=== PATIENT | female | born 1985 | race Caucasian/White ===

== ENCOUNTER 2017-05-03 12:23 | Inpatient (IN) | payer OTHER, MEDICARE ==
[~2017-05-03] VITALS: Ht 177.8 cm; Wt 76.2 kg
--- NOTE | 2017-05-03 12:23 | NUR ---
Patient was BIBA at this time.
[2017-05-03 12:29] VITALS: BP 122/79
[2017-05-03 13:00] LABS: HEMATOCRIT 30.6 % (36-48); HEMOGLOBIN 9.9 g/dL (12.0-16.0); MEAN CORPUSCULAR HEMOGLOBIN 32 pg (27-31); MEAN CORPUSCULAR HGB CONC 32 g/dL (33-37); MEAN CORPUSCULAR VOLUME 97 fL (80-94); PLATELET COUNT (AUTO) 53 K/uL (140-450); RED BLOOD CELL COUNT(AUTO) 3.14 MIL/uL (4.20-5.40); RED CELL DISTRIBUTION WIDTH 13.2 % (11.6-13.7)
[2017-05-03 13:08] LABS: ANION GAP 5.9 (8-16); CALCIUM 8.5 mg/dL (8.5-10.1); CREATININE 1.7 mg/dL (0.6-1.3); POTASSIUM 3.9 mmol/L (3.5-5.1)
--- NOTE | 2017-05-03 13:14 | NUR ---
Patient taken to bed 03 via gurney per EMS.
[2017-05-03 13:15] LABS: ALBUMIN 2.8 g/dL (3.4-5.0); TOTAL BILIRUBIN 0.5 mg/dL (0.0-1.0); TOTAL PROTEIN, SERUM 6.4 g/dL (6.4-8.2)
--- NOTE | 2017-05-03 13:15 | NUR ---
PATIENT BIBA FROM REHAB FACILITY FOR EVALUATION OF ALTERED MENTAL STATUS S/P INGESTION OF COCAINE LAST NOC . PRODUCTION GENERALIST STATES PT TOOK COCAINE LAST NOC AND HAS BEEN ALTERED SINCE THAT TIME . DENIES N/V/D; SKIN IS PINK/WARM/DRY; AAOX2; LUNGS CLEAR BL; HR EVEN AND REGULAR; PT DENIES ANY FEVER, CP, SOB, OR COUGH AT THIS TIME; PATIENT STATES PAIN OF 0/10 AT THIS TIME; VSS; PATIENT POSITIONED FOR COMFORT; HOB ELEVATED; BEDRAILS UP X2; BED DOWN. ER MD MADE AWARE OF PT STATUS.
[2017-05-03 13:28] LABS: BAND % (MANUAL) 46 % (0-8); LYMPHOCYTES % (MANUAL) 3 % (20-46); MONOCYTES % (MANUAL) 8 % (5-12); NEUTROPHILS % (MANUAL) 43 (43-65)
[2017-05-03 13:29] LABS: PLATELET ESTIMATE DECREASED
--- NOTE | 2017-05-03 14:18 | NUR ---
XRAY at bedside.
[2017-05-03] MEDS ORDERED: NACL 0.9% 1,000 ML IV ONE ×3 (15:10)
[2017-05-03 15:11] LABS: SALICYLATE 3.4 mg/dL (2.8-20.0)
[2017-05-03 15:12] LABS: ACETAMINOPHEN < 0.5 ug/ml (10-30); ALCOHOL, BLOOD < 3 mg/dL (<3)
--- NOTE | 2017-05-03 15:35 | NUR ---
PT PROVIDED WITH BEDPAN BY [employer] [facility]E FOR URINE SAMPLE BUT UNABLE TO PROVIDE, PER DR NICE, PT STRAIGHT CATH WITH JAMIE COLON'S ASSISTANCE, RESULTS GIVEN TO DR NICE
--- NOTE | 2017-05-03 15:49 | NUR ---
0.9% 1L N/S STARTED W/O RIGHT AC 20G PER ORDER BY DR NICE
--- NOTE | 2017-05-03 15:53 | NUR ---
Dr. Banuelos evaluating patient at bedside.
[2017-05-03 15:56] LABS: APPEARANCE,URINE CLEAR (CLEAR); BLOOD, URINE 1+ (NEGATIVE); COLOR,URINE YELLOW (YELLOW); LEUKOCYTE ESTERASE ,URINE NEGATIVE (NEGATIVE); NITRITE, URINE NEGATIVE (NEGATIVE); PH,URINE 5.5 (5.0-9.0); PROTEIN,URINE NEGATIVE (NEGATIVE); UGLUCOSE 3+ (NEGATIVE); UROBILINOGEN,URINE 0.2 EU/dL (0.2 - 1)
[2017-05-03 15:59] LABS: BILIRUBIN,URINE NEGATIVE (NEGATIVE)
[2017-05-03 16:17] LABS: AMPHETAMINE, URINE POS. ng/ml (NEG <=1000); BACTERIA,URINE FEW /HPF (None Seen); BARBITURATE, URINE NEG. ng/ml (NEG <=200); BENZODIAZEPINE, URINE NEG. ng/mL (NEG <=200); CANNABINOID, URINE NEG. ng/mL (NEG <=50); COCAINE, URINE NEG. ng/mL (NEG <=300); OPIATE, URINE NEG. ng/mL (NEG <=2000); PHENCYCLIDINE SCREEN,URINE NEG. ng/mL (NEG <=25); RBC,URINE 0-3 /HPF (0-5); SQUAMOUS EPITHELIAL CELL,UR 0-3 /LPF (0-3 (FEW)); URINE AMORPHOUS URATE 1+ /HPF (None Seen); WBC,URINE 0-3 /HPF (0-5)
--- NOTE | 2017-05-03 16:26 | NUR ---
PT RESTING COMFORTABLY, NO ACUTE DISTRESS NOTED, NO AGRESSIVE BEHAVIOR NOTED, ON MONITOR, WILL CONTINUE TO MONITOR
--- NOTE | 2017-05-03 18:40 | NUR ---
Patient will be admitted to care of DR SAL. Admited to TELE. Will go to room 109B. Belongings list completed. Report to DAGOBERTO BARILLAS.
--- NOTE | 2017-05-03 19:00 | NUR ---
Patient going to CT via parul weller.
--- NOTE | 2017-05-03 19:20 | NUR ---
PT TAKEN TO CT FOR CT OF THE HEAD VIA JAMESREDWINA BY [employer], TAKEN STRAIT TO 109B FROM CT, REPORT GIVEN PHOTOENGRAVING ETCHER AT TELE
--- NOTE | 2017-05-03 19:20 | NUR ---
PT CAME FROM THE ED [facility]IA [employer] [facility]. PT IS AOX1, UNABLE TO RECALL FULL NAME, TIME, AND DATE, BUT IS ABLE TO FOLLOW COMMANDS, COOPERATE. PT IS ON ROOM AIR, NO S/S OF DISTRESS. ORIENTED PT TO THE UNIT. CALL LIGHT WITHIN REACH. SKIN INTACT. NOTED BLOOD IN THE LAI AREA, POSSIBLE START OF PERIOD, CLEANED AND PROVIDED PAD AND UNDERWEAR. WILL CONTINUE TO MONITOR. PT DENIES PAIN. IV ON THE LEFT HAND 20 G, PATENT AND INTACT. IV TO THE RIGHT AC 20 G, PATENT AND INTACT. DISCUSSED PLAN OF CARE WITH PATIENT, PATIENT VERBALIZED UNDERSTANDING. REINFORCEMENT NEEDED. SAFETY MEASURES CHECKED. WILL CONTINUE TO MONITOR.
[2017-05-03] MEDS ORDERED: NACL 0.9% 1,000 ML IV SCH (19:22)
[2017-05-03] MEDS ORDERED: ZOLPIDEM 5 MG TAB PO PRN (19:25)
[2017-05-03] MEDS ORDERED: LORazepam 1 MG TAB PO PRN (19:25)
[2017-05-03] MEDS ORDERED: KETOROLAC 30 MG/ML VIAL IVP PRN (19:25)
[2017-05-03] MEDS ORDERED: ONDANSETRON 4 MG/2 ML VIAL IM/IVP PRN (19:25)
[2017-05-03] MEDS ORDERED: MORPHINE SULFATE 2 MG/ML SYR IVP PRN (19:25)
[2017-05-03] MEDS ORDERED: HYDROcodone/APAP 7.5/325 MG 1 TAB PO PRN (19:25)
[2017-05-03] MEDS ORDERED: DOCUSATE SODIUM 100 MG GELCAP PO PRN (19:25)
[2017-05-03 20:00] VITALS: BP 100/57
--- NOTE | 2017-05-03 20:00 | NUR ---
VITAL SIGNS TAKEN AND IS STABLE. CALL LIGHT WITHIN REACH. WILL CONTINUE TO MONITOR FOR ANY CHANGES.
[2017-05-03 20:06] LABS: INR 1.2 (0.8-1.2); PARTIAL THROMBOPLASTIN TIME 29.4 secs (22-35.6); PROTHROMBIN TIME 12.6 secs (10.8-13.4)
[2017-05-03 20:16] LABS: LACTATE DEHYDROGENASE 161 U/L (81-234)
[2017-05-03 20:19] LABS: AMYLASE 17 U/L (25-115); CHOL/HDL RATIO 3.8 (1-4.5); CHOLESTEROL 84 mg/dL (<200); CREATINE KINASE, TOTAL 38 U/L (26-192); HDL CHOLESTEROL 22 mg/dL (40-60); LDL (CALC) 35 mg/dL (60-100); LIPASE 80 U/L (73-393); MAGNESIUM 2.1 mg/dL (1.8-2.4); PHOSPHORUS 3.5 mg/dL (2.5-4.9); TRIGLYCERIDES 138 mg/dL (30-150)
[2017-05-03 20:39] LABS: THYROID STIMULATING HORMONE < 0.01 uIU/mL (0.34-3.74)
[2017-05-03] MEDS ORDERED: DEXTROSE 50% 50 ML SYR IVP PRN (21:30)
[2017-05-03] MEDS: INSULIN LISPRO SLIDING SCALE 100 UNITS/ML VIAL SUBQ PRN (21:58)
--- NOTE | 2017-05-03 22:00 | NUR ---
PT SEEN ASLEEP ON BED. NO S/S OF DISTRESS. CALL LIGHT WITHIN REACH. WILL CONTINUE TO MONITOR FOR ANY CHANGES.
[2017-05-03 23:00] LABS: BLOOD GAS PCO2 34.4 mmHg (20-50); BLOOD GAS PH 7.461 (7.35-7.45); BLOOD GAS PO2 80.7 mmHg
[2017-05-03 23:01] LABS: BLOOD GAS BASE EXCESS 0.4 mmol/L (-2.0-2.0)
[2017-05-03 23:03] LABS: BLOOD GAS O2 SAT% 95.2 % (92.0-98.5)
[2017-05-03] MEDS ORDERED: PROPRANOLOL 20 MG TAB PO PRN (23:30)
[2017-05-04] VITALS (7 sets, daily range): BP systolic 95–117; BP diastolic 52–66
--- NOTE | 2017-05-04 | NUR ---
VITAL SIGNS TAKEN AND IN STABLE CONDITION. PT IS CURRENTLY ASLEEP. WILL CONTINUE TO MONITOR. CALL LIGHT WITHIN REACH.
--- NOTE | 2017-05-04 02:22 | NUR ---
PT SEEN ON BED ASLEEP, NO S/S OF DISTRESS. CALL LIGHT WITHIN REACH. WILL CONTINUE TO MONITOR.
--- NOTE | 2017-05-04 04:00 | NUR ---
VITAL SIGNS STABLE. PT IS SEEN ASLEEP, BUT WHEN AWOKEN IS CONFUSED. WILL CONTINUE TO MONITOR. SAFETY CHECKS IN PLACE. CALL LIGHT WITHIN REACH.
[2017-05-04] MEDS: SERTRALINE 50 MG TAB PO SCH ×2 (05:53→08:52)
[2017-05-04] MEDS ORDERED: LITHIUM CARBONATE 300 MG TAB PO SCH ×2 (06:30→21:00)
[2017-05-04] MEDS ORDERED: LEVOTHYROXINE 0.075 MG TAB PO SCH (06:30)
[2017-05-04] MEDS: INSULIN LISPRO SLIDING SCALE 100 UNITS/ML VIAL SUBQ PRN ×4 (06:31→20:56)
[2017-05-04] MEDS: BLOOD GLUCOSE MONITORING 1 DEV DEV FS SCH ×4 (06:32→21:01)
[2017-05-04 06:39] LABS: HEMATOCRIT 25.2 % (36-48); HEMOGLOBIN 8.4 g/dL (12.0-16.0); MEAN CORPUSCULAR HEMOGLOBIN 33 pg (27-31); MEAN CORPUSCULAR HGB CONC 34 g/dL (33-37); MEAN CORPUSCULAR VOLUME 97 fL (80-94); PLATELET COUNT (AUTO) 31 K/uL (140-450); RED CELL DISTRIBUTION WIDTH 13.2 % (11.6-13.7)
[2017-05-04 06:50] LABS: ANION GAP 9.6 (8-16); CALCIUM 7.5 mg/dL (8.5-10.1); CARBON DIOXIDE 25.9 mmol/L (21-32); CREATININE 1.2 mg/dL (0.6-1.3); POTASSIUM 3.5 mmol/L (3.5-5.1)
[2017-05-04 06:51] LABS: MAGNESIUM 2.1 mg/dL (1.8-2.4); PHOSPHORUS 2.7 mg/dL (2.5-4.9)
[2017-05-04 07:01] LABS: BAND % (MANUAL) 25 % (0-8); LYMPHOCYTES % (MANUAL) 9 % (20-46); MONOCYTES % (MANUAL) 13 % (5-12); NEUTROPHILS % (MANUAL) 51 (43-65)
[2017-05-04 07:02] LABS: METAMYELOCYTES % 2 % (0-0); PLATELET ESTIMATE DECREASED
--- NOTE | 2017-05-04 07:15 | NUR ---
ENDORSED TO MORNING RN FOR CONTINUITY OF CARE. IS IN STABLE CONDITION.
--- NOTE | 2017-05-04 07:20 | NUR ---
RECEIVED PT IN BED. AWAKE. ALERT ORIENTED X1 WITH SOME CONFUSION NOTED. NO SOB NOTED. DENIES ANY PAIN OR DISCOMFORT AT THIS TIME. NO SIGNS AND SYMPTOMS OF ACUTE PAIN OR DISCOMFORT NOTED AT THIS TIME. POSITIVE BOWEL SOUNDS NOTED ON FOUR QUADRANTS. PT ON BEDREST. SAFETY PRECAUTION IN PLACE. CALL LIGHT WITHIN REACH. DENIES ANY PROBLEM WITH BOWEL OR BLADDER ELIMINATION AT THIS TIME.
--- NOTE | 2017-05-04 07:52 | NUR ---
DR LANE CAME TO SEE PT. MADE AWARE OF PLATELET LAB RESULT 31.
[2017-05-04] MEDS ORDERED: ACARBOSE 50 MG TAB PO SCH (08:00)
[2017-05-04 08:22] LABS: T4 (THYROXINE) 10.2 ug/dL (4.5-12.0)
[2017-05-04] MEDS: DIVALPROEX 500 MG TABEC PO SCH ×2 (08:50→20:54)
--- NOTE | 2017-05-04 08:50 | NUR ---
EDSON FROM ULTRASOUND DEPT CAME TO DO THE ULTRASOUND OF THYROID, AND VENOUS ANTERIOR AND LOWER EXTREMITIES.
[2017-05-04] MEDS: FOLIC ACID 1 MG TAB PO SCH (08:51)
[2017-05-04] MEDS: CYANOCOBALAMIN 1,000 MCG TAB PO SCH (08:52)
[2017-05-04] MEDS: PIOGLITAZONE 15 MG TAB PO SCH (08:54)
--- NOTE | 2017-05-04 09:13 | NUR ---
PATIENT HAS BEEN SCREENED AND CATEGORIZED MODERATE NUTRITION RISK. PATIENT WILL BE SEEN WITHIN 3-5 DAYS OF ADMISSION. 05/03/17-05/08/[address] Addendum: 05/04/17 at [address] ERROR
[2017-05-04 09:14] LABS: LITHIUM,SERUM 4.06 meq/L (0.50-1.00)
--- NOTE | 2017-05-04 09:49 | NUR ---
PATIENT HAS BEEN SCREENED AND CATEGORIZED HIGH NUTRITION RISK. PATIENT WILL BE SEEN WITHIN 1-2 DAYS OF ADMISSION. 05/03/17-05/05/[address]
[2017-05-04 10:05] LABS: HEMOGLOBIN A1C 6.7 % (4.8-5.6)
--- NOTE | 2017-05-04 11:52 | NUR ---
05/04/17 RD INITIAL ASSESSMENT COMPLETED PLEASE REFER TO NUTRITION ASSESSMENT UNDER CARE ACTIVITY FOR ESTIMATED NUTRITIONAL NEEDS. 1. CONTINUE 60 G CONSISTENT CARBOHYDRATE DIET 2. RD TO FOLLOW-UP 2-3 DAYS; HIGH RISK PRIYA BYERS RD
--- NOTE | 2017-05-04 12:05 | NUR ---
PT IS VERY CONFUSED/ALTERED. ASKED HER WHAT HER NAME WAS AND SHE RESPONDED, ASKED IF IT WAS OK TO DO THE ECHOCARDIOGRAM MULTIPLE TIMES BEFORE SHE SAID NO (REFUSED). NOTIFIED DR. LANE AND WILL TRY AGAIN TOMORROW.
[2017-05-04] MEDS ORDERED: FUROSEMIDE 40 MG/4 ML VIAL IVP SCH (12:30)
--- NOTE | 2017-05-04 12:52 | NUR ---
RECEIVED ORDER TO INSERT JAUREGUI CATHETER. INSERTED JAUREGUI CATHETER USING STERILE TECHNIQUE. DRAINING WELL, CLEAR YELLOW URINE.
[2017-05-04] MEDS: FUROSEMIDE 40 MG/4 ML VIAL IVP SCH (16:52)
--- NOTE | 2017-05-04 17:40 | NUR ---
PER WASHING MACHINE LOADER AND PULLER WHILE SHE WAS FEEDING PT. SHE FELT PT HAS A TEMPERATURE. CHECKED PT'S TEMPERATURE AT 100.8. COOLING MEASURES PROVIDED. MEDICATED TYLENOL PRN. ND DENIES ANY PAIN OR DISCOMFORT.
[2017-05-04] MEDS: ACETAMINOPHEN 325 MG TAB PO PRN (17:45)
--- NOTE | 2017-05-04 18:18 | NUR ---
RECHECKED PT'S TEMPERATURE TEMP WENT DOWN TO 96.8. NO ACUTE SIGNS AND SYMPTOMS OF DISTRESS NOTED AT THIS TIME.
--- NOTE | 2017-05-04 19:43 | NUR ---
PT KEPT CLEAN DRY AND COMFORTABLE NEEDS ATTENDED. ENDORSED TO BANKING CONSULTANT ON STABLE CONDITION FOR CONTINUITY OF CARE. JACLYN ARENAS MADE AWARE TO CHECK LITHIUM LAB DRAW RESULT FIRST BEFORE 0630 DOSE.
--- NOTE | 2017-05-04 19:44 | NUR ---
RECEIVED REPORT FROM MORNING NURSE. RECEIVED PATIENT IN BED AWAKE, A/OX1 WITH PERIODS OF CONFUSION. NO S/S OF DISTRESS. NO COMPLAINTS OF PAIN OR DISCOMFORT. WITH A JAUREGUI CATHETHER IN PLACE WITH YELLOW URINE DRAINING. WITH SL ON LEFT HAND, PATENT AND INTACT. ON BEDREST. PLAN OF CARE DISCUSSED WITH PATIENT, NEEDS REINFORCEMENT. KEPT CLEAN AND DRY. ALL NEEDS ATTENDED. CALL LIGHT WITHIN REACH. SAFETY MEASURES IN PLACE.
--- NOTE | 2017-05-04 20:51 | NUR ---
DUE MEDS GIVEN, TOLERATED BY PATIENT. WILL CONTINUE TO MONITOR. SAFETY CHECKS IN PLACE.
[2017-05-04] MEDS: MONTELUKAST SODIUM 10 MG TAB PO SCH (20:54)
[2017-05-04] MEDS: SIMVASTATIN 20 MG TAB PO SCH (20:55)
[2017-05-05] VITALS (7 sets, daily range): BP systolic 64–106; BP diastolic 31–66
--- NOTE | 2017-05-05 | NUR ---
VITAL SIGNS STABLE. PT SEEN ASLEEP. KEPT CLEAN AND DRY. WILL CONTINUE TO MONITOR. SAFETY CHECKS IN PLACE.
--- NOTE | 2017-05-05 02:12 | NUR ---
PT SEEN ON BED ASLEEP. NO S/S OF DISTRESS. WILL CONTINUE TO MONITOR. SAFETY CHECKS IN PLACE.
--- NOTE | 2017-05-05 04:00 | NUR ---
VITAL SIGNS STABLE. PT SEEN ON BED ASLEEP. NO S/S OF DISTRESS. NO COMPLAINTS OF PAIN. KEPT CLEAN AND DRY. ALL NEEDS ATTENDED. CALL LIGHT WITHIN REACH. SAFETY CHECKS IN PLACE. WILL CONTINUE TO MONITOR FOR CHANGES.
[2017-05-05 05:42] LABS: HEMOGLOBIN 9.1 g/dL (12.0-16.0)
[2017-05-05 06:02] LABS: ANION GAP 5.6 (8-16); CALCIUM 7.6 mg/dL (8.5-10.1); CARBON DIOXIDE 30.6 mmol/L (21-32); CREATININE 1.2 mg/dL (0.6-1.3); POTASSIUM 3.2 mmol/L (3.5-5.1)
[2017-05-05 06:06] LABS: HEMATOCRIT 27.5 % (36-48); MEAN CORPUSCULAR HEMOGLOBIN 32 pg (27-31); MEAN CORPUSCULAR HGB CONC 33 g/dL (33-37); MEAN CORPUSCULAR VOLUME 97 fL (80-94); PLATELET COUNT (AUTO) 34 K/uL (140-450); RED BLOOD CELL COUNT(AUTO) 2.84 MIL/uL (4.20-5.40); RED CELL DISTRIBUTION WIDTH 13.2 % (11.6-13.7); WHITE BLOOD COUNT (AUTO) 5.3 K/uL (4.8-10.8)
[2017-05-05] MEDS: INSULIN LISPRO SLIDING SCALE 100 UNITS/ML VIAL SUBQ PRN ×3 (06:24→16:34)
[2017-05-05] MEDS: BLOOD GLUCOSE MONITORING 1 DEV DEV FS SCH ×4 (06:46→21:01)
--- NOTE | 2017-05-05 07:15 | NUR ---
ENDORSED TO AM NURSE FOR CONTINUITY OF CARE. PT IN STABLE CONDITION. NO S/S OF DISTRESS.
[2017-05-05 07:32] LABS: BAND % (MANUAL) 33 % (0-8); LYMPHOCYTES % (MANUAL) 16 % (20-46); METAMYELOCYTES % 1 % (0-0); MONOCYTES % (MANUAL) 20 % (5-12); NEUTROPHILS % (MANUAL) 30 (43-65)
[2017-05-05] MEDS: PIOGLITAZONE 15 MG TAB PO SCH (08:38)
[2017-05-05] MEDS: CYANOCOBALAMIN 1,000 MCG TAB PO SCH (08:38)
[2017-05-05] MEDS: SERTRALINE 50 MG TAB PO SCH (08:38)
[2017-05-05] MEDS: FUROSEMIDE 40 MG/4 ML VIAL IVP SCH ×2 (08:38→16:31)
[2017-05-05] MEDS: FOLIC ACID 1 MG TAB PO SCH (08:38)
[2017-05-05] MEDS: DIVALPROEX 500 MG TABEC PO SCH ×3 (08:39→16:32)
--- NOTE | 2017-05-05 08:40 | NUR ---
JAUREGUI DC'D PER ORDER, 10ML ASPIRATED FROM BALLOON, CATH TIP INTACT, PT HOSEA WELL, APPROX 200ML DARK URINE COLLECTED.
--- NOTE | 2017-05-05 09:08 | NUR ---
PHYSICAL THERAPY AT BEDSIDE, WILL GET PT UP INTO SHOWER WITH PT
[2017-05-05 09:15] LABS: FREE T4 (FREE THYROXINE) 2.53 ng/dL (0.76-1.46)
[2017-05-05 09:23] LABS: THYROID STIMULATING HORMONE < 0.01 uIU/mL (0.34-3.74)
[2017-05-05] MEDS ORDERED: POTASSIUM CHLORIDE 10 MEQ TABER PO SCH (09:30)
--- NOTE | 2017-05-05 10:55 | NUR ---
PT UP OUT OF BED WITH ASSIST WITH PHYSICAL THERAPY, PT WEAK, UNSTEADY ON HER FEET, UNABLE TO AMBULATE ON HER OWN, UNSAFE FOR SHOWER, BED BATH GIVEN, PERICARE DONE.
--- NOTE | 2017-05-05 11:11 | NUR ---
NOTIFIED DR. LANE THAT PT REFUSED ECHO AGAIN, HE EXPLAINED THE BENEFITS OF HAVING THE ECHO BUT THE PT DIDN'T CHANGE HER MIND.
--- NOTE | 2017-05-05 12:27 | NUR ---
CLINICAL REVIEW DONE.
[2017-05-05] MEDS ORDERED: DIVA500T1 PO (12:57)
[2017-05-05] MEDS ORDERED: ESK300 PO (12:59)
[2017-05-05] MEDS ORDERED: DIVA250E1 PO (12:59)
[2017-05-05 13:03] LABS: FOLIC ACID 12.2 ng/mL (>3.0)
--- NOTE | 2017-05-05 13:15 | NUR ---
SS NOTE: SENT PSYCH PLACEMENT INQUIRIES TO: - [facility] - [facility] - [facility] - [facility] Addendum: 05/05/17 at 1456 by Amira LOREDO INQUIRY ALSO SENT TO [facility] IN [place]
--- NOTE | 2017-05-05 13:20 | NUR ---
MOTHER MATTHEW FERNANDEZ (CONSERVATOR) AT BEDSIDE, DR LANE CALLED TO BEDSIDE TO DISCUSS PLAN OF CARE.
--- NOTE | 2017-05-05 13:49 | NUR ---
CELLULAR EQUIPMENT REPAIRER AT BEDSIDE FOR RE-ATTEMPT ECHOCARDIOGRAM WITH MOTHER AT BEDSIDE.
[2017-05-05] MEDS ORDERED: PIOG15TA13 PO (15:20)
[2017-05-05] MEDS ORDERED: FOLI1TAB90 PO (15:20)
[2017-05-05] MEDS ORDERED: DIVA500E13 PO (15:20)
[2017-05-05] MEDS ORDERED: SERT-146 PO (15:20)
[2017-05-05] MEDS ORDERED: CYAN100058 PO (15:20)
--- NOTE | 2017-05-05 16:49 | NUR ---
DUE MEDS GIVEN, PT HOSEA PILLS WELL, IV SITE CLEAR, ROCEPHINE INFUSING WELL, PT RESTING QUIETLY,R MAREK EVEN UNLABORED, SPEAKS SLOWLY TO THIS NURSE, DENIES PAIN OR DISCOMFORT, PT REMAINS ON CIRCULAR SAWYER HELPER, WILL CONTINUE TO MONITOR.
--- NOTE | 2017-05-05 19:28 | NUR ---
REPORT GIVEN TO RADIO INTERFERENCE SUPERVISOR, PT IN STABLE CONDITION.
--- NOTE | 2017-05-05 19:32 | NUR ---
RECEIVED REPORT FROM K NURSE AWAKE AND ALERT. A/OX1 WITH PERIODS OF CONFUSION. NO S/S OF DISTRESS. NO COMPLAINTS OF PAIN OR DISCOMFORT. IVF SITE TO RAC#20 , PATENT AND INTACT. PLAN OF CARE DISCUSSED WITH PATIENT, NEEDS REINFORCEMENT. NEEDS WILL BE ANTICIPATED AND MET. CALL LIGHT WITHIN REACH. SAFETY MEASURES IN PLACE. DX. OF TOXIC ENCEPHALOPATHY.
[2017-05-05] MEDS: MONTELUKAST SODIUM 10 MG TAB PO SCH (21:01)
[2017-05-05] MEDS: SIMVASTATIN 20 MG TAB PO SCH (21:01)
--- NOTE | 2017-05-05 21:49 | NUR ---
PT. PROVIDED WITH SNACK. CONFUSED. TALKING WITHOUT ANY SENSE OR CONNECTION AT ALL. BED ALARM ON. ROOM SITUATED INFRONT OF NURSING UNIT FOR EASY PHYSICAL CHECKING. NEEDS ANTICIPATED AND WILL BE MET.
[2017-05-06] VITALS: BP 110/58
--- NOTE | 2017-05-06 | NUR ---
STILL AWAKE AND WATCHED CLOSELY BY TAILMAN OUTSIDE ROOM. ENCOURAGED TO SLEEP RT MIDNIGHT. NO ANSWER GIVEN.
--- NOTE | 2017-05-06 03:00 | NUR ---
PT. ASLEEP NOW AT THIS TIME. NO RESTLESSNESS. NO SOB.
--- NOTE | 2017-05-06 04:54 | NUR ---
STILL ASLEEP. NO RESTLESSNESS.
[2017-05-06] MEDS: BLOOD GLUCOSE MONITORING 1 DEV DEV FS SCH ×4 (06:05→20:17)
[2017-05-06] MEDS: INSULIN LISPRO SLIDING SCALE 100 UNITS/ML VIAL SUBQ PRN ×4 (06:07→21:41)
--- NOTE | 2017-05-06 07:18 | NUR ---
ENDORSED TO THE NEXT RN FOR CONTINUITY OF CARE AWAKE AND ALERT. REFUSED TO HAVE BLOOD TESTS TAKEN FOR AM RT PER PT. SHE IS GOING HOME TODAY ANYWAY. PROS AND CONS TO NOT HAVING BLOOD SAMPLE TAKEN FOR TESTS EXPLAINED.
--- NOTE | 2017-05-06 07:20 | NUR ---
REPORT RECEIVED FROM COATING MACHINE OPERATOR, PT RESTING QUIETLY, RESP EVEN UNLABORED ON ROOM AIR IN NAD, SKIN COLOR WNL, PLAN OF CARE REVIEWED, DIRECTOR OF CREATIVE SERVICES AT BEDSIDE FOR BLOOD DRAW, CALL WALLACE WITHIN REACH, SIDE RAILS UP, BED LOCKED IN LOW POSITION, WILL CONTINUE TO MONITOR.
[2017-05-06 08:00] VITALS: BP 120/88
[2017-05-06 08:04] LABS: HEMATOCRIT 24.6 % (36-48); HEMOGLOBIN 8.1 g/dL (12.0-16.0); MEAN CORPUSCULAR HEMOGLOBIN 32 pg (27-31); MEAN CORPUSCULAR HGB CONC 33 g/dL (33-37); MEAN CORPUSCULAR VOLUME 96 fL (80-94); RED BLOOD CELL COUNT(AUTO) 2.56 MIL/uL (4.20-5.40); WHITE BLOOD COUNT (AUTO) 6.6 K/uL (4.8-10.8)
[2017-05-06 08:19] LABS: PLATELET COUNT (AUTO) 45 K/uL (140-450)
[2017-05-06 08:32] LABS: T4 (THYROXINE) 7.9 ug/dL (4.5-12.0)
[2017-05-06 08:36] LABS: ANION GAP 6.7 (8-16); CALCIUM 8.6 mg/dL (8.5-10.1); CARBON DIOXIDE 29.7 mmol/L (21-32); POTASSIUM 3.4 mmol/L (3.5-5.1)
[2017-05-06 08:41] LABS: BASOPHILS % (MANUAL) 1 % (0-2); EOSINOPHILS % (MANUAL) 1 % (0-4); LYMPHOCYTES % (MANUAL) 17 % (20-46); NEUTROPHILS % (MANUAL) 45 (43-65)
[2017-05-06 08:42] LABS: PLATELET ESTIMATE DECREASED
[2017-05-06 08:43] LABS: BAND % (MANUAL) 24 % (0-8); METAMYELOCYTES % 1 % (0-0)
[2017-05-06 08:46] LABS: MONOCYTES % (MANUAL) 12 % (5-12)
[2017-05-06] MEDS: FOLIC ACID 1 MG TAB PO SCH (09:00)
[2017-05-06] MEDS: FUROSEMIDE 40 MG/4 ML VIAL IVP SCH ×2 (09:24→17:00)
[2017-05-06] MEDS: DIVALPROEX 500 MG TABEC PO SCH ×3 (09:25→17:00)
[2017-05-06] MEDS: SERTRALINE 50 MG TAB PO SCH (09:25)
[2017-05-06] MEDS: PIOGLITAZONE 15 MG TAB PO SCH (09:25)
[2017-05-06] MEDS: CYANOCOBALAMIN 1,000 MCG TAB PO SCH (09:26)
--- NOTE | 2017-05-06 09:26 | NUR ---
DUE MEDS GIVEN, PT HOSEA PO MEDS WELL, PT AWAKE ALERT, MOVING LEGS TO SIDE OF BED, PT ABLE TO VERBALIZES HER NEEDS WITH SHORT SLURRED SPEECH, STATES "I WANT TO GO", "I WANT JUICE", PT ASSISTED TO SITTING POSITION IN BED, ASSISTED WITH BREAKFAST, PT WITH UNCOORDINATED ARMS/HANDS UNABLE TO EFFECTIVELY FEED HERSELF.
--- NOTE | 2017-05-06 10:11 | NUR ---
05/06/17 RD FOLLOW UP COMPLETED PLEASE REFER TO NUTRITION PROGRESS NOTE UNDER CARE ACTIVITY FOR ESTIMATED NUTRITION NEEDS. RD RECOMMENDATIONS: 1. CONTINUE ON CURRENT DIET TOLERATED. 2. RDN TO PROVIDE NO SUGAR ADDED HEALTH SHAKE WITH ALL MEALS TID TO HELP BETTER MEET EST NEEDS. 3. RD WILL F/U 5-7 DAYS; LOW RISK. SILVIANO GOMEZ MS, RDN
--- NOTE | 2017-05-06 13:00 | NUR ---
PT AWAKE ALERT, RESP EVEN UNLABORED, APPEARS IN NAD, DIAPER CHANGED, PERICARE DONE, PT SITTING UP NOW FOR LUNCH ASSISTED BY JAMISON MCKAY.
[2017-05-06 14:43] LABS: LITHIUM,SERUM 3.63 meq/L (0.50-1.00)
--- NOTE | 2017-05-06 14:45 | NUR ---
PHYSICAL THERAPY AT BEDSIDE, PT UP OUT OF BED AND AMBULATED WITH 2 PERSON ASSIST.
--- NOTE | 2017-05-06 15:16 | NUR ---
PHYSICAL THERAPY CO-SIGN The Physical Therapy Progress Notes documented by Slate Cutter have been reviewed. I CONCUR W/LAMP STACK DEVELOPER NOTE; CONT PER TX PLAN Reviewed/Co-Signed by: Britney De La Cruz PT Documentation Done by: GLENDY BARRAZA LAMP STACK DEVELOPER Addendum: 05/06/17 at 1517 by rBitney De La Cruz PT Amended: Links added.
--- NOTE | 2017-05-06 15:20 | NUR ---
MOTHER AND PT'S DAUGHTER AT BEDSIDE.
[2017-05-06 16:00] VITALS: BP 113/60
--- NOTE | 2017-05-06 16:30 | NUR ---
DR MCCULLOUGH (PSYCH) TO BEDSIDE FOR EVAL.
--- NOTE | 2017-05-06 18:00 | NUR ---
PT SITTING UP EATING DINNER WITH ASSIST, HOSEA WELL, DENIES ANY PAIN OR DISCOMFORT, DIAPER CHANGED, LAI CARE DONE, WILL CONTINUE TO MONTIOR.
--- NOTE | 2017-05-06 19:30 | NUR ---
REPORT GIVEN TO APPLICATION SPEC NURSE, PT STABLE.
--- NOTE | 2017-05-06 19:31 | NUR ---
RECEIVED REPORT FROM DAY RN FOR CONTINUITY OF CARE. PATIENT IS ALERT AND ORIENTED X2, UNABLE TO VERBALIZE UNDERSTANDING TO PLAN OF CARE. SHIFT ASSESSMENT DONE, VITAL SIGNS STABLE. NO S/S OF RESPIRATORY DISTRESS NOTED ON ROOM AIR. RT AC 20 GAUGE AND LT HAND 20 GAUGE PATENT AND FLUSHED. SAFETY PRECAUTIONS ENFORCED, BED ALARM ON AND BED IN LOWEST POSITION. WILL CONTINUE TO MONITOR FREQUENTLY.
[2017-05-06 20:00] VITALS: BP 102/58
[2017-05-06] MEDS: MONTELUKAST SODIUM 10 MG TAB PO SCH (20:17)
[2017-05-06] MEDS: SIMVASTATIN 20 MG TAB PO SCH (20:17)
--- NOTE | 2017-05-06 20:17 | NUR ---
DUE MEDICATIONS ADMINISTERED, TOLERATED WELL. PATIENT RESTING IN BED NO S/S OF DISTRESS OR DISCOMFORT NOTED. WILL CONTINUE TO MONITOR.
--- NOTE | 2017-05-06 22:00 | NUR ---
PATIENT RESTING AT THIS TIME, NO S/S OF DISTRESS OR DISCOMFORT NOTED. WILL CONTINUE TO MONITOR.
[2017-05-06 22:19] LABS: ANION GAP 7.5 (8-16); CARBON DIOXIDE 30.5 mmol/L (21-32)
[2017-05-07] VITALS: BP 115/59
--- NOTE | 2017-05-07 00:27 | NUR ---
VITAL SIGNS STABLE, PATIENT RESTLESS AT THIS TIME, ADMINISTERED ATIVAN PER MD ORDER. WILL CONTINUE TO MONITOR.
--- NOTE | 2017-05-07 02:00 | NUR ---
PATIENT RESTING IN BED, NO S/S OF DISTRESS OR DISCOMFORT NOTED. WILL CONTINUE TO MONITOR.
--- NOTE | 2017-05-07 04:10 | NUR ---
PATIENT ASLEEP AT THIS TIME, NO S/S OF DISTRESS OR DISCOMFORT. SAFETY MEASURES ENFORCED, WILL CONTINUE TO MONITOR.
[2017-05-07] MEDS: BLOOD GLUCOSE MONITORING 1 DEV DEV FS SCH ×4 (05:48→20:43)
[2017-05-07] MEDS: INSULIN LISPRO SLIDING SCALE 100 UNITS/ML VIAL SUBQ PRN ×4 (06:04→21:40)
--- NOTE | 2017-05-07 06:05 | NUR ---
BLOOD SUGAR TAKEN, ADMINISTERED INSULIN PER MD ORDER. WILL CONTINUE TO MONITOR.
[2017-05-07 06:44] LABS: ANION GAP 7.3 (8-16); CALCIUM 8.8 mg/dL (8.5-10.1); CARBON DIOXIDE 30.3 mmol/L (21-32); CREATININE 0.8 mg/dL (0.6-1.3); POTASSIUM 3.6 mmol/L (3.5-5.1)
[2017-05-07 06:55] LABS: HEMATOCRIT 24.4 % (36-48); MEAN CORPUSCULAR HEMOGLOBIN 32 pg (27-31); MEAN CORPUSCULAR HGB CONC 33 g/dL (33-37); MEAN CORPUSCULAR VOLUME 97 fL (80-94); PLATELET COUNT (AUTO) 88 K/uL (140-450); RED BLOOD CELL COUNT(AUTO) 2.51 MIL/uL (4.20-5.40); RED CELL DISTRIBUTION WIDTH 13.4 % (11.6-13.7); WHITE BLOOD COUNT (AUTO) 9.3 K/uL (4.8-10.8)
--- NOTE | 2017-05-07 07:06 | NUR ---
ENDORSED PATIENT TO DAY RN FOR CONTINUITY OF CARE, PATIENT IS IN STABLE CONDITION.
--- NOTE | 2017-05-07 07:06 | NUR ---
RECEIVED REPORT FROM NIGHT NURSE. PT IS SLEEPING BUT AWAKES TO NAME. AAOX1 TO SELF, ON ROOM AIR, IV TO RIGHT AC 20G SALINE LOCK, LEFT HAND 20G SALINE LOCK PATENT AND INTACT, SKIN INTACT. INITIAL ASSESSMENT COMPLETED, REVIEWED PLAN OF CARE WITH PT, PT DOES NOT VERBALIZE UNDERSTANDING. ALL SAFETY PRECAOUTIONS MET. CALL LIGHT WITHIN REACH. WILL CONTINUE TO MONITOR.
[2017-05-07 07:37] LABS: BAND % (MANUAL) 10 % (0-8); BASOPHILS % (MANUAL) 0 % (0-2); EOSINOPHILS % (MANUAL) 0 % (0-4); LYMPHOCYTES % (MANUAL) 9 % (20-46); MONOCYTES % (MANUAL) 7 % (5-12); NEUTROPHILS % (MANUAL) 74 (43-65)
[2017-05-07 07:38] LABS: PLATELET ESTIMATE DECREASED
[2017-05-07 07:50] VITALS: BP 110/64
[2017-05-07] MEDS: FOLIC ACID 1 MG TAB PO SCH (09:26)
[2017-05-07] MEDS: PIOGLITAZONE 15 MG TAB PO SCH (09:27)
[2017-05-07] MEDS: CYANOCOBALAMIN 1,000 MCG TAB PO SCH (09:27)
[2017-05-07] MEDS: DIVALPROEX 500 MG TABEC PO SCH ×3 (09:27→16:23)
[2017-05-07] MEDS: SERTRALINE 50 MG TAB PO SCH (09:27)
[2017-05-07] MEDS: FUROSEMIDE 40 MG/4 ML VIAL IVP SCH ×2 (09:28→16:23)
--- NOTE | 2017-05-07 09:29 | NUR ---
DUE MEDICATIONS GIVEN PT TOLERATED WELL. PT IS LETHARGIC BUT OPENS EYES TO SHAKE. ALL SAFETY NEEDS MET. WILL CONTINUE TO MONITOR
--- NOTE | 2017-05-07 12:18 | NUR ---
DUE MEDICATIONS GIVEN. PT TOLERATED WELL. ALL SAFETY PRECAUTIONS MET. WILL CONTINUE TO MONITOR.
[2017-05-07 12:27] LABS: LITHIUM,SERUM 3.08 meq/L (0.50-1.00)
--- NOTE | 2017-05-07 13:05 | NUR ---
CHECKED IN PT, PT IS AWAKE RESTLESS IN BED, REPOSITION PT IN BED, ALL SAFETY PRECAUTIONS MET. WILL CONTINUE TO MONITOR.
--- NOTE | 2017-05-07 15:45 | NUR ---
DUE MEDICATION GIVEN. PT CURRENTLY ASLEEP BUT AWAKENS TO SHAKE. ALL SAFETY PRECAUTIONS MET
[2017-05-07 16:00] VITALS: BP 110/63
[2017-05-07] MEDS: metFORMIN 850 MG TAB PO SCH (16:23)
--- NOTE | 2017-05-07 16:24 | NUR ---
PT SLEEPING BUT AWAKEN TO NAME, DUE MEDICATIONS GIVEN, NO S/S OF DISTRESS NOTED. ALL NEEDS MET. WILL CONTINUE TO MONITOR.
--- NOTE | 2017-05-07 18:10 | NUR ---
PT CURRENTLY EATING DINNER ASSISTED BY JEWELRY FINISHER. CALL LIGHT WITHIN REACH. WILL CONTINUE TO MONITOR.
--- NOTE | 2017-05-07 19:25 | NUR ---
ENDORSED PLAN OF CARE TO NIGHT NURSE, PT IN STABLE CONDITION.
--- NOTE | 2017-05-07 19:26 | NUR ---
RECEIVED REPORT FROM DAY RN FOR CONTINUITY OF CARE. PATIENT IS A&OX1 UNABLE TO VERBALIZE UNDERSTANDING. SHIFT ASSESSMENT DONE, VITAL SIGNS STABLE. NO S/S OF RESPIRATORY DISTRESS NOTED ON ROOM AIR. FLACC-0. IV TO RT AC AND LT WRIST PATENT AND FLUSHED. SKIN INTACT. SAFETY PRECAUTIONS ENFORCED. WILL CONTINUE TO MONITOR FREQUENTLY.
[2017-05-07 20:00] VITALS: BP 101/52
--- NOTE | 2017-05-07 20:33 | NUR ---
DUE MEDICATIONS ADMINISTERED, TOLERATED WELL. BLOOD SUGAR TAKEN, WILL ADMINISTER INSULIN PER MD ORDER. SPOKE TO PATIENTS MOTHER MATTHEW SAID SHE WILL BE IN TOMORROW. WILL CONTINUE TO MONITOR FREQUENTLY.
[2017-05-07] MEDS: SIMVASTATIN 20 MG TAB PO SCH (20:40)
[2017-05-07] MEDS: MONTELUKAST SODIUM 10 MG TAB PO SCH (20:40)
--- NOTE | 2017-05-07 22:00 | NUR ---
PATIENT ASLEEP AT THIS TIME, NO S/S OF DISTRESS OR DISCOMFORT NOTED. WILL CONTINUE TO MONITOR.
[2017-05-08] VITALS: BP 104/56
--- NOTE | 2017-05-08 00:10 | NUR ---
VITAL SIGNS STABLE. PROVIDED ORAL CARE FOR PATIENT, TOLERATED WELL. WILL CONTINUE TO MONITOR FREQUENTLY.
--- NOTE | 2017-05-08 02:05 | NUR ---
PATIENT AWAKE IN BED, NO S/S OF DISTRESS OR DISCOMFORT NOTED. WILL CONTINUE TO MONITOR.
--- NOTE | 2017-05-08 04:15 | NUR ---
PATIENT CLEANED AND REPOSITIONED, TOLERATED WELL. SAFETY MEASURES ENFORCED, WILL CONTINUE TO MONITOR.
[2017-05-08 06:11] LABS: ANION GAP 8.2 (8-16); CALCIUM 9.3 mg/dL (8.5-10.1); CARBON DIOXIDE 31.8 mmol/L (21-32); CREATININE 0.9 mg/dL (0.6-1.3)
[2017-05-08 06:13] LABS: HEMOGLOBIN 8.8 g/dL (12.0-16.0); MEAN CORPUSCULAR HEMOGLOBIN 32 pg (27-31); MEAN CORPUSCULAR HGB CONC 33 g/dL (33-37); MEAN CORPUSCULAR VOLUME 98 fL (80-94); PLATELET COUNT (AUTO) 134 K/uL (140-450); RED BLOOD CELL COUNT(AUTO) 2.75 MIL/uL (4.20-5.40); RED CELL DISTRIBUTION WIDTH 13.5 % (11.6-13.7); WHITE BLOOD COUNT (AUTO) 12.3 K/uL (4.8-10.8)
[2017-05-08] MEDS: BLOOD GLUCOSE MONITORING 1 DEV DEV FS SCH ×4 (06:16→20:43)
--- NOTE | 2017-05-08 06:17 | NUR ---
BLOOD SUGAR TAKEN, WILL ADMINISTER INSULIN PER MD ORDER. PATIENT RESTING IN BED, WILL CONTINUE TO MONITOR.
[2017-05-08] MEDS: INSULIN LISPRO SLIDING SCALE 100 UNITS/ML VIAL SUBQ PRN ×4 (06:24→20:44)
[2017-05-08 06:40] LABS: BAND % (MANUAL) 2 % (0-8); EOSINOPHILS % (MANUAL) 1 % (0-4); LYMPHOCYTES % (MANUAL) 9 % (20-46); MONOCYTES % (MANUAL) 9 % (5-12); NEUTROPHILS % (MANUAL) 79 (43-65)
--- NOTE | 2017-05-08 07:30 | NUR ---
ENDORSED PATIENT TO DAY RN FOR CONTINUITY OF CARE, PATIENT IS IN STABLE CONDITION.
--- NOTE | 2017-05-08 07:31 | NUR ---
PT AWAKE, ALERT AND CONFUSED, WITH NO SIGNS OF ACUTE DISTRESS. BOWEL SOUNDS ACTIVE IN ALL 4 QUADRANTS. BOWEL AND BLADDER INCONTINENCE. BEDREST. SKIN INTACT. IV PATENT AND ASYMPTOMATIC. RE-ORIENTED PT TO HOSPITAL AND TO UNIT, PT UNABLE TO COMPREHEND. BED IN LOW POSITION WITH BILATERAL HALF SIDE RAILS UP, CALL LIGHT WITHIN REACH.
[2017-05-08 08:00] VITALS: BP 105/68
[2017-05-08] MEDS: PIOGLITAZONE 15 MG TAB PO SCH (08:11)
[2017-05-08] MEDS: DIVALPROEX 500 MG TABEC PO SCH ×3 (08:11→16:59)
[2017-05-08] MEDS: metFORMIN 850 MG TAB PO SCH (08:11)
[2017-05-08] MEDS: FUROSEMIDE 40 MG/4 ML VIAL IVP SCH ×2 (08:11→16:59)
[2017-05-08] MEDS: FOLIC ACID 1 MG TAB PO SCH (08:12)
[2017-05-08] MEDS: SERTRALINE 50 MG TAB PO SCH (08:12)
[2017-05-08] MEDS: CYANOCOBALAMIN 1,000 MCG TAB PO SCH (08:12)
--- NOTE | 2017-05-08 12:07 | NUR ---
SS NOTE: SENT PSYCH PLACEMENT INQUIRIES TO: - [facility] - [facility] - [facility] - [facility] - [facility] - [facility]
--- NOTE | 2017-05-08 13:31 | NUR ---
SS NOTE: I SPOKE WITH PT'S MOTHER, MATTHEW PAVAN AND UPDATED HER ON PT'S D/C PLAN. Addendum: 05/09/17 at 1523 by Amira Jones SS MATTHEW ALSO STATED THAT IF PT NEEDS SNF PLACEMENT, PT HAS BEEN TO [facility] BEFORE AND WOULD LIKE TO SEE IF THEY ARE ABLE TO ACCEPT PT
[2017-05-08 16:00] VITALS: BP 116/84
--- NOTE | 2017-05-08 16:25 | NUR ---
SS NOTE: PER IVAN FROM [facility], THEY ARE UNABLE TO ACCEPT PT IF PT IS NOT AMBULATORY WITHOUT ASSISTANCE PER STEPHANIE FROM [facility], PT'S INFORMATION IS PENDING REVIEW PER GWEN FROM [facility], NO FEMALE BEDS AVAILABLE PER DAMION FROM [facility], NO FEMALE BEDS AVAILABLE
[2017-05-08] MEDS ORDERED: metFORMIN 850 MG TAB PO SCH (17:00)
[2017-05-08] MEDS: metFORMIN 500 MG TAB PO SCH (17:06)
--- NOTE | 2017-05-08 19:16 | NUR ---
PT AWAKE, ALERT WITH CONFUSION, NO SIGNS OF ACUTE DISTRESS. ENDORSED TO LAN RN, APPLIQUE SEWER NURSE, FOR CONTINUITY OF CARE.
--- NOTE | 2017-05-08 19:30 | NUR ---
RECEIVED FROM AM RN IN BED AWAKE AND ALERT. WITH CONFUSION AT TIMES. PT. NOTED TO MAKE TALKS WITH TOPIC NOT CONNECTED TO ISSUE AT HAND DISCUSSED. TOTAL CARE. DISABLED STATUS.HISTORY DRUG ABUSE, METH POSITIVE ,SCHIZOPHRENIA. DX. OF TOXIC ENCEPHALOPATHY. NEEDS WILL BE ANTICIPATED AND MET. PT. TURNS AND MOVES SELF. BED ALARM ON. RE-ORIENTED FREQUENTLY TO SURROUNDINGS AND CARE. IVF SITE TO RIGHT HAND AND LAC INTACT WITH GOOD BLOOD RETURNS.
[2017-05-08] MEDS: MONTELUKAST SODIUM 10 MG TAB PO SCH (20:39)
[2017-05-08] MEDS: SIMVASTATIN 20 MG TAB PO SCH (20:40)
--- NOTE | 2017-05-08 22:00 | NUR ---
PT. STILL AWAKE AND RESTLESS. BED ALARM ON. PT. WATCHED/MONITORED CLOSELY RT CONFUSION AND FALL RISK RT WANTING TO GET OUT OF BED.
--- NOTE | 2017-05-08 23:28 | NUR ---
SLEEPING WELL. NEEDS WILL BE ANTICIPATED AND MET. PT. WAKES UP EASILY WHEN TOUCHED.
[2017-05-09 00:16] VITALS: BP 106/62
[2017-05-09 01:39] LABS: LITHIUM,SERUM 2.57 meq/L (0.50-1.00)
--- NOTE | 2017-05-09 01:43 | NUR ---
RECEIVED LITHIUM LEVEL VALUE FROM YESTERDAY'S DRAW =2.57 . MADE CHARGE NURSE AWARE. NOT REPORTED TO MD RT LEVEL IS TRENDING DOWN FROM PREVIOUS RESULT.
--- NOTE | 2017-05-09 04:12 | NUR ---
CALL LIGHT AT BEDSIDE.AWAKE AT THIS TIME RT HYGIENE FOR AM GOING ON. NO SOB. FLACC 0- CONFUSED. NEEDS ANTICIPATED AND MET. TOTAL CARE RT CONFUSION/DISORIENTATION.
[2017-05-09] MEDS: BLOOD GLUCOSE MONITORING 1 DEV DEV FS SCH ×4 (05:24→21:28)
[2017-05-09] MEDS: INSULIN LISPRO SLIDING SCALE 100 UNITS/ML VIAL SUBQ PRN ×4 (05:26→21:21)
[2017-05-09 05:40] LABS: BASOPHILS # (AUTO) 0.1 K/uL (0.00-0.22); BASOPHILS % (AUTO) 1.2 % (0.0-2.0); EOSINOPHILS # (AUTO) 0.2 K/uL (0-0.4); EOSINOPHILS % (AUTO) 1.7 % (0.0-4.0); HEMATOCRIT 28.5 % (36-48); HEMOGLOBIN 9.1 g/dL (12.0-16.0); LYMPHOCYTES # (AUTO) 1.6 K/uL (2.5-16.5); LYMPHOCYTES % (AUTO) 15.4 % (20.5-51.1); MEAN CORPUSCULAR HEMOGLOBIN 32 pg (27-31); MEAN CORPUSCULAR HGB CONC 32 g/dL (33-37); MEAN CORPUSCULAR VOLUME 98 fL (80-94); NEUTROPHILS # (AUTO) 7.7 K/uL (1.8-7.7); NEUTROPHILS % (AUTO) 72.7 % (42.2-75.2); PLATELET COUNT (AUTO) 190 K/uL (140-450); RED BLOOD CELL COUNT(AUTO) 2.91 MIL/uL (4.20-5.40); RED CELL DISTRIBUTION WIDTH 13.9 % (11.6-13.7); WHITE BLOOD COUNT (AUTO) 10.6 K/uL (4.8-10.8)
[2017-05-09 05:54] LABS: ANION GAP 10.2 (8-16); CALCIUM 9.3 mg/dL (8.5-10.1); CARBON DIOXIDE 31.2 mmol/L (21-32); CREATININE 0.9 mg/dL (0.6-1.3); POTASSIUM 4.4 mmol/L (3.5-5.1)
--- NOTE | 2017-05-09 07:25 | NUR ---
AWAKE AT THIS TIME. ENDORSED TO THE NEXT RN FOR CONTINUITY OF CARE.
--- NOTE | 2017-05-09 07:26 | NUR ---
PT AWAKE, ALERT, AND CONFUSED, NO SIGNS OF ACUTE DISTRESS. BOWEL SOUNDS ACTIVE IN ALL 4 QUADRANTS, BOWEL AND BLADDER INCONTINENCE. SKIN INTACT. BEDBOUND. IV PATENT AND ASYMPTOMATIC. FLACC SCORE IS 0 AT THIS TIME. RE-ORIENTED PATIENT TO HOSPITAL AND TO UNIT, UNSURE IF PATIENT IS ABLE TO UNDERSTAND ALTHOUGH VERBALIZES UNDERSTANDING. BED IN LOW POSITION WITH BILATERAL HALF SIDE RAILS UP, CALL LIGHT WITHIN REACH.
[2017-05-09 08:00] VITALS: BP 146/86
[2017-05-09] MEDS: FUROSEMIDE 40 MG/4 ML VIAL IVP SCH (08:51)
[2017-05-09] MEDS: metFORMIN 500 MG TAB PO SCH (08:51)
[2017-05-09] MEDS: PIOGLITAZONE 15 MG TAB PO SCH (08:52)
[2017-05-09] MEDS: DIVALPROEX 500 MG TABEC PO SCH ×3 (08:53→16:42)
[2017-05-09] MEDS: FOLIC ACID 1 MG TAB PO SCH (08:54)
[2017-05-09] MEDS: CYANOCOBALAMIN 1,000 MCG TAB PO SCH (08:54)
[2017-05-09] MEDS: SERTRALINE 50 MG TAB PO SCH (09:01)
[2017-05-09] MEDS: NACL 0.45% 1,000 ML IV SCH (10:55)
--- NOTE | 2017-05-09 12:58 | NUR ---
BLOOD SUGAR WAS 442, REPORTED TO MD, PER MD GIVE HUMALOG 10 UNITS. ADMINISTERED, WILL CONTINUE TO MONITOR.
--- NOTE | 2017-05-09 14:43 | NUR ---
RECEIVED NEW ORDERS FOR STRAIGHT CATH FOR URINE COLLECTION FOR URINE OSMOLALITY. NOTED AND CARRIED OUT.
[2017-05-09 16:00] VITALS: BP 111/61
[2017-05-09] MEDS: MONTELUKAST SODIUM 10 MG TAB PO SCH (16:42)
[2017-05-09] MEDS: metFORMIN 850 MG TAB PO SCH (16:42)
--- NOTE | 2017-05-09 19:25 | NUR ---
PT ASLEEP, NO SIGNS OF ACUTE DISTRESS. ENDORSED TO USER EXPERIENCE LEAD NURSE FOR CONTINUITY OF CARE.
--- NOTE | 2017-05-09 19:30 | NUR ---
RECEIVED PT FROM KEIRY RN PT IS AOX1 DROWSY RESTING ON BED NOT SOB NOTED , PT CAN HER 4 EXTREMITIES, IV ON RT HAND INFUSING WELL INITIAL ASSESSMENT DONE
--- NOTE | 2017-05-09 21:00 | NUR ---
PT TAKEN WELL HER ORAL MEDICATION, NOT DISTRESS NOTED
[2017-05-09] MEDS: SIMVASTATIN 20 MG TAB PO SCH (21:25)
[2017-05-10] VITALS: BP 120/64
--- NOTE | 2017-05-10 | NUR ---
PT ON CLOSE MONITORING RESTING ON BED AOX1 MUMBLING IV ;ON RT HAND INFUSING WELL
[2017-05-10] MEDS: NACL 0.45% 1,000 ML IV SCH ×5 (01:04→22:16)
--- NOTE | 2017-05-10 02:00 | NUR ---
PT CONFUSED RESTING ON BED , MUMBLING , IV ON RT HAND INFUSING WELL
--- NOTE | 2017-05-10 04:11 | NUR ---
SPONGE BATH GIVEN LINEN CHANGED , PT FOLLOW COMMANDS,, CONFUSED AOX1
--- NOTE | 2017-05-10 05:30 | NUR ---
PT ON CLOSE MONITORING , CONFUSED AAOX1 FOLLOW COMMANDS NOT COMBATIVE MUMBLING IV ON RT H;AND INFUSING WELL
[2017-05-10] MEDS: BLOOD GLUCOSE MONITORING 1 DEV DEV FS SCH ×4 (06:00→22:10)
[2017-05-10] MEDS: INSULIN LISPRO SLIDING SCALE 100 UNITS/ML VIAL SUBQ PRN ×4 (06:01→22:18)
--- NOTE | 2017-05-10 06:20 | NUR ---
BLOOD SUGAR TEST [address] [employer] WITH [address] CASTILLO
[2017-05-10 07:07] LABS: ANION GAP 14.5 (8-16); CALCIUM 9.1 mg/dL (8.5-10.1); CARBON DIOXIDE 28.1 mmol/L (21-32); CREATININE 0.9 mg/dL (0.6-1.3); POTASSIUM 4.6 mmol/L (3.5-5.1)
--- NOTE | 2017-05-10 07:15 | NUR ---
RECEIVED REPORT FROM DAGOBERTO MOCTEZUMA. PT IS A/OX1, ON BEDREST, IV IS ON THE RT HAND, PATENT, INTACT, INFUSING WELL, SKIN IS INTACT, NO S/S OF RESPIRATORY DISTRESS OR DISCOMFORT NOTED, DISCUSSED PLAN OF CARE WITH PT, PT UNABLE TO COMPREHEND, SAFETY/FALL PRECAUTIONS ARE IN PLACE, CALL LIGHT IS WITHIN REACH, WILL CONTINUE TO MONITOR.
[2017-05-10 08:00] VITALS: BP 134/67
[2017-05-10] MEDS: metFORMIN 850 MG TAB PO SCH ×3 (08:40→17:00)
[2017-05-10] MEDS: FOLIC ACID 1 MG TAB PO SCH (08:40)
[2017-05-10] MEDS: CYANOCOBALAMIN 1,000 MCG TAB PO SCH (08:41)
[2017-05-10] MEDS: PIOGLITAZONE 15 MG TAB PO SCH (08:41)
[2017-05-10] MEDS: DIVALPROEX 500 MG TABEC PO SCH ×3 (08:42→17:00)
--- NOTE | 2017-05-10 08:42 | NUR ---
DUE MEDICATIONS WERE GIVEN, PT TOLERATED WELL.
[2017-05-10 08:59] LABS: LITHIUM,SERUM 1.67 meq/L (0.50-1.00)
[2017-05-10] MEDS ORDERED: LORazepam 1 MG TAB PO PRN (09:15)
[2017-05-10] MEDS: LORazepam 1 MG TAB PO SCH ×3 (10:09→17:00)
[2017-05-10] MEDS: ARIPiprazole 10 MG TAB PO SCH (10:09)
--- NOTE | 2017-05-10 10:40 | NUR ---
PT SLEEPING IN BED AT THIS TIME, CALL LIGHT WITHIN REACH, WILL CONTINUE TO MONITOR.
--- NOTE | 2017-05-10 13:40 | NUR ---
PT SLEEPING IN BED AT THIS TIME, BUT EASILY AWAKEN, NO S/S OF RESPIRATORY DISTRESS OR DISCOMFORT NOTED, CALL LIGHT WITHIN REACH.
--- NOTE | 2017-05-10 15:55 | NUR ---
PT SLEEPING IN BED, CALL LIGHT WITHIN REACH.
[2017-05-10 16:00] VITALS: BP 117/63
[2017-05-10] MEDS: MONTELUKAST SODIUM 10 MG TAB PO SCH (17:00)
--- NOTE | 2017-05-10 18:45 | NUR ---
PT IS SITTING UP IN BED, PT IS EATING WITH THE ASSISTANCE OF THE SCIENTIFIC SOFTWARE DEVELOPER, CALL LIGHT WITHIN REACH.
--- NOTE | 2017-05-10 19:35 | NUR ---
ENDORSED PT TO DAGOBERTO MONIQUE. FOR CONTINUITY OF CARE, PT STABLE AT THIS TIME.
[2017-05-10 20:00] VITALS: BP 132/79
--- NOTE | 2017-05-10 20:05 | NUR ---
SEEN PT AWAKE, ALERT AND ORIENTED TO NAME ONLY. PT'S SPEECH ARE GARBLED AND INCOMPREHENSIBLE. PT ABLE TO SAY "NO" WHEN ASKED IF SHE'S IN PAIN. INITIAL ASSESSMENT DONE. PT'S LIPS AR VERY DRY. OFFERED WATER TO DRINK AND ONLY TOOK FEW SIPS. PT HAS BILATERAL MITTENS ON PER AM, NURSE. PT MOVES A LOT AND HAS TENDENCY TO PULL OUT IV ACCESS. VITAL SIGNS CHECKED AND WNL. SAFETY REINFORCED. WILL CONTINUE TO MONITOR.
[2017-05-10] MEDS: SIMVASTATIN 20 MG TAB PO SCH (22:10)
--- NOTE | 2017-05-10 22:10 | NUR ---
BLOOD SUGAR CHECKED:266. WILL COVER W/ INSULIN ORDERED. HOB ELEVATED. ZOCOR PO GIVEN W/ APPLE SAUCE. PT TOLERATED MEDICATION WELL.
[2017-05-10] MEDS: INSULIN DETEMIR 100 UNITS/ML 10 ML VIAL SUBQ SCH (22:19)
--- NOTE | 2017-05-11 00:24 | NUR ---
PT AWAKE, STILL RESTLESS AND MOVES A LOT. PT MEDICATED W/ ATIVAN PO ORDERED. PT TOLERATED MEDICATION W/ APPLE SAUCE. PT KEPT COMFORTABLE IN BED. WILL CLOSELY MONITOR.
--- NOTE | 2017-05-11 01:30 | NUR ---
PT IS SLEEPING NOW. IVF INFUSING WELL. SAFETY REINFORCED.
[2017-05-11 04:00] VITALS: BP 100/70
--- NOTE | 2017-05-11 04:00 | NUR ---
SEEN PT ASLEEP BUT AROUSABLE. VITAL SIGNS CHECKED. IVF INFUSING WELL. SAFETY REINFORCED.
--- NOTE | 2017-05-11 05:40 | NUR ---
SEEN PT AWAKE. PT GIVEN WATER TO DRINK.
[2017-05-11] MEDS: NACL 0.45% 1,000 ML IV SCH ×4 (05:51→23:13)
[2017-05-11] MEDS: BLOOD GLUCOSE MONITORING 1 DEV DEV FS SCH ×4 (07:07→20:46)
[2017-05-11] MEDS: INSULIN LISPRO SLIDING SCALE 100 UNITS/ML VIAL SUBQ PRN ×2 (07:09→13:19)
[2017-05-11 07:14] LABS: ANION GAP 5.6 (8-16); CALCIUM 8.7 mg/dL (8.5-10.1); CARBON DIOXIDE 31.7 mmol/L (21-32); CREATININE 0.7 mg/dL (0.6-1.3); POTASSIUM 4.3 mmol/L (3.5-5.1)
--- NOTE | 2017-05-11 07:29 | NUR ---
SPOKE TO LAB REGARDING PT'S NP=106. GF=[id number] BUN=27 CREA=0.7 WILL NOTIFY MD. Addendum: 05/11/17 at 6735 by Alma Rosa Guzman RN NOTES FOR [id number]
--- NOTE | 2017-05-11 07:30 | NUR ---
RECEIVED PATIENT REPORT BEDSIDE. PATIENT ASLEEP BUT EASILY AROUSABLE. IV LINE TO THE RIGHT HAND INTACT WITH IVF INFUSING WELL. BED LOWERED WITH CALL LIGHT WITHIN REACH. WILL CONTINUE TO MONITOR
--- NOTE | 2017-05-11 07:30 | NUR ---
REPORT GIVEN TO DAYSHIFT NURSE INCLUDING CRITICAL LAB RESULT.
[2017-05-11] MEDS: FOLIC ACID 1 MG TAB PO SCH (09:09)
[2017-05-11] MEDS: metFORMIN 850 MG TAB PO SCH ×3 (09:09→17:02)
--- NOTE | 2017-05-11 09:09 | NUR ---
ADMINISTERED SCHEDULED MEDICATIONS. PATIENT TOLERATED WELL
[2017-05-11] MEDS: CYANOCOBALAMIN 1,000 MCG TAB PO SCH (09:11)
[2017-05-11] MEDS: DIVALPROEX 500 MG TABEC PO SCH ×4 (09:11→20:57)
[2017-05-11] MEDS: ARIPiprazole 10 MG TAB PO SCH ×2 (09:11→20:57)
[2017-05-11] MEDS: LORazepam 1 MG TAB PO SCH ×3 (09:11→17:02)
--- NOTE | 2017-05-11 09:15 | NUR ---
PATIENT REPORT GIVEN AT BEDSIDE. PATIENT ENDORSED IN STABLE CONDITION
--- NOTE | 2017-05-11 11:00 | NUR ---
PATIENT GIVEN BED BATH. PATIENT TURNED AND REPOSITIONED FOR COMFORT
--- NOTE | 2017-05-11 12:00 | NUR ---
PATIENT'S MOTHER PRESENT IN THE ROOM. PATIENT ASLEEP
--- NOTE | 2017-05-11 12:30 | NUR ---
SCHEDULED MEDICATIONS NOT ADMINISTERED. PATIENT TOO LETHARGIC
[2017-05-11 16:00] VITALS: BP 126/64
--- NOTE | 2017-05-11 16:30 | NUR ---
PATIENT CALMLY IN BED. PATIENT AWAKE AND ALERT. NO S/S OF DISTRESS NOTED
[2017-05-11] MEDS: MONTELUKAST SODIUM 10 MG TAB PO SCH (17:01)
--- NOTE | 2017-05-11 19:30 | NUR ---
RECEIVED REPORT FROM AM NURSE. PT SEEN ASLEEP. IS AOX1, CONFUSED. IS ON ROOM AIR. NO S/S OF DISTRESS. NO COMPLAINTS OF PAIN AT THIS TIME. WITH AN IV ON RIGHT HAND 22 G, PATENT AND INFUSING WELL. DISCUSSED PLAN OF CARE WITH PATIENT, NEEDS REINFORCEMENT. SAFETY CHECKS IN PLACE. WILL CONTINUE TO MONITOR.
[2017-05-11] MEDS: SIMVASTATIN 20 MG TAB PO SCH (20:57)
--- NOTE | 2017-05-11 20:57 | NUR ---
DID NOT GIVE ORAL MEDICATION DUE TO PT BEING DROWSY. BLOOD SUGAR 149, DR MONTEZ MADE AWARE. GAVE 10 UNITS OF LEVEMIR PER MD ORDER.
[2017-05-11] MEDS: INSULIN DETEMIR 100 UNITS/ML 10 ML VIAL SUBQ SCH (21:00)
--- NOTE | 2017-05-11 21:03 | NUR ---
GAVE APPLE SAUCE FOR PATIENT TO EAT.
[2017-05-11] MEDS: LORazepam 1 MG TAB PO PRN (23:53)
--- NOTE | 2017-05-11 23:54 | NUR ---
PT IS SEEN AGITATED. WILL GIVE PRN ATIVAN. VS TAKEN, STABLE. WILL CONTINUE TO MONITOR. SAFETY CHECKS IN PLACE.
[2017-05-12] VITALS: BP 108/60
--- NOTE | 2017-05-12 01:30 | NUR ---
MADE ROUNDS. PT IS ASLEEP. NO S/S OF ANY DISCOMFORT NOTED.
--- NOTE | 2017-05-12 04:30 | NUR ---
PT IS ASLEEP. NO S/S OF DISTRESS. WILL CONTINUE TO MONITOR.
[2017-05-12] MEDS: NACL 0.45% 1,000 ML IV SCH ×4 (05:42→22:50)
[2017-05-12 06:14] LABS: ANION GAP 10.7 (8-16); CALCIUM 8.3 mg/dL (8.5-10.1); CARBON DIOXIDE 28.3 mmol/L (21-32); CREATININE 0.6 mg/dL (0.6-1.3)
[2017-05-12] MEDS: BLOOD GLUCOSE MONITORING 1 DEV DEV FS SCH ×4 (06:39→20:45)
--- NOTE | 2017-05-12 06:39 | NUR ---
BLOOD SUGAR WAS CHECKED RESULT 113. NO INSULIN COVERAGE NEEDED.
--- NOTE | 2017-05-12 07:22 | NUR ---
ENDORSED TO AM SHIFT FOR CONTINUITY OF CARE. PT IN STABLE CONDITION.
--- NOTE | 2017-05-12 07:23 | NUR ---
RECEIVED REPORT FROM NIGHT NURSE AT PT BEDSIDE. PATIENT IS ALERT TO SELF AND FOLLOWS COMMANDS. PATIENT ON BEDREST. NO S/S OF ACUTE DISTRESS. BED IN LOWEST POSITION. CALL LIGHT WITHIN REACH.
[2017-05-12 08:00] VITALS: BP 138/71
--- NOTE | 2017-05-12 08:20 | NUR ---
ASSISTED PT IN CHANGING OF POSITIONS. PATIENT LINENS CHANGED, CLEAN AND DRY. PT ABLE TO ANSWER QUESTIONS APPROPRIATELY, STILL MUMBLING. NO S/S OF ACUTE DISTRESS.
[2017-05-12] MEDS: CYANOCOBALAMIN 1,000 MCG TAB PO SCH (08:26)
[2017-05-12] MEDS: DIVALPROEX 500 MG TABEC PO SCH ×2 (08:26→20:03)
[2017-05-12] MEDS: metFORMIN 850 MG TAB PO SCH ×3 (08:26→16:20)
[2017-05-12] MEDS: FOLIC ACID 1 MG TAB PO SCH (08:26)
--- NOTE | 2017-05-12 08:47 | NUR ---
Social Service Note: Per Anine from [facility] / , they are able to accept non-ambulatory patients, however, they need to assign one-on-one staff and they currently do not have staff available, nor will they have staff available over the weekend, case management rn Katelynn vera.
--- NOTE | 2017-05-12 11:30 | NUR ---
PATIENT SEEN BY MD AT BEDSIDE. NO S/S OF ACUTE DISTRESS.
[2017-05-12] MEDS: INSULIN LISPRO SLIDING SCALE 100 UNITS/ML VIAL SUBQ PRN ×2 (11:35→20:13)
--- NOTE | 2017-05-12 12:30 | NUR ---
PATIENT MOVEMENT OF LEGS RESTLESS WITH NO S/S OF DISTRESS. CONSTANT MOVEMENT OF LEGS NOTED, MD AT BEDSIDE AWARE.
--- NOTE | 2017-05-12 13:00 | NUR ---
PT FOUND WITH IV REMOVED, NEW IV STARTED ON RAC #22. NO S/S OF ACUTE DISTRESS. LINENS CHANGED, CLEAN AND DRY.
--- NOTE | 2017-05-12 14:28 | NUR ---
05/12/17 RD FOLLOW-UP ASSESSMENT COMPLETED PLEASE REFER TO NUTRITION ASSESSMENT UNDER CARE ACTIVITY FOR ESTIMATED NUTRITIONAL NEEDS. 1. 2 GM SODIUM DIET, 60 GM CONSISTENT CARBOHYDRATE DIET + DIET HEALTH SHAKE TID 2. RD TO FOLLOW-UP 3-5 DAYS; MODERATE RISK PRIYA BYERS, KARIN
[2017-05-12 16:00] VITALS: BP 112/68
--- NOTE | 2017-05-12 16:00 | NUR ---
PT RESTING IN BED. NO S/S OF ACUTE DISTRESS NOTED.
[2017-05-12] MEDS: MONTELUKAST SODIUM 10 MG TAB PO SCH (16:20)
--- NOTE | 2017-05-12 17:57 | NUR ---
PT CONTINUES TO MOVE AROUND IN BED, REPOSITIONED PATIENT. PATIENT SITTING UP FOR DINNER, TOLERATING WELL.
--- NOTE | 2017-05-12 19:10 | NUR ---
ENDORSED PLAN OF CARE TO NIGHT DAGOBERTO MOLINA AT PT BEDSIDE. NO S/S OF ACUTE DISTRESS.
--- NOTE | 2017-05-12 19:53 | NUR ---
PT TRIGGERED BED ALARM, WANTS TO GO TO BATHROOM BUT PT ALREADY VOIDED ON THE BED, INCONTINENT, PERINEAL CARE DONE, BED LINEN CHANGED, PT ENCOURAGE TO USE CALL LIGHT FOR ASSISTANCE, PT JUST NODDED, SIDE RAILS UP AND BED ALARM ON, CALL LIGHT WITHIN REACH.
[2017-05-12 20:00] VITALS: BP 144/74
[2017-05-12] MEDS: SIMVASTATIN 20 MG TAB PO SCH (20:03)
[2017-05-12] MEDS: ARIPiprazole 10 MG TAB PO SCH (20:03)
[2017-05-12] MEDS: INSULIN DETEMIR 100 UNITS/ML 10 ML VIAL SUBQ SCH (20:13)
[2017-05-12] MEDS: LORazepam 1 MG TAB PO PRN (21:33)
--- NOTE | 2017-05-12 21:35 | NUR ---
PT RESTLESS AND TALKING TO SELF, TRYING TO GET OOB SEVERAL TIMES, INSTRUCTED TO STAY IN BED AND USE CALL LIGHT FOR ASSISTANCE, WILL FOLLOW DIRECTION FOR SEVERAL MINUTES AND THEN TRIGGER BED ALARM AGAIN, ATIVAN PO GIVEN PRN, SAT OUTSIDE THE ROOM TO CLOSELY MONITOR PT.
[2017-05-12] MEDS: LORazepam 2 MG/ML VIAL IVP PRN (22:41)
--- NOTE | 2017-05-12 22:45 | NUR ---
PT STILL RESTLESS, PERIODS OF CONFUSION AND TRYING TO GET OOB, PAGED DR PICKETT WITH NEW ORDER, ATIVAN 1MG IVP ADMINISTERED PRN, CHOCOLATE PUDDING AND ORANGE JUICE GIVEN, CONSUMED 100%, SIDE RAILS UP AND BED ALARM ON, MONITORED CLOSELY.
[2017-05-13] VITALS: BP 101/59
--- NOTE | 2017-05-13 | NUR ---
PT SLEEPING, AROUSABLE BUT DROWSY, MOANS TO TOUCH, VITAL SIGNS STABLE, NO SIGNS OF DISTRESS, IVF INFUSING WELL, CONTINUE TO MONITOR CLOSELY.
--- NOTE | 2017-05-13 03:10 | NUR ---
PT AWAKE, DROWSY BUT RESTLESS, WITH CONFUSION, TALKING TO SELF AND SINGING AT TIMES, SIDE RAILS UP AND BED ALARM ON, RN IN THE ROOM FOR CLOSE MONITORING.
[2017-05-13 04:10] VITALS: BP 120/69
[2017-05-13] MEDS: LORazepam 2 MG/ML VIAL IVP PRN (04:11)
--- NOTE | 2017-05-13 04:15 | NUR ---
PT RESTLESS, KEEPS ON TOSSING AND TURNING ON BED, OCCASIONALLY DANGLES LEGS OVER THE SIDE RAILS, VERBALLY RESPONSIVE BUT CONFUSED, BLOOD SUGAR CHECKED WITH 150 RESULT, VITAL SIGS STABLE, MEDICATED PRN WITH ATIVAN IVP FOR RESTLESSNESS, MONITORED CLOSELY.
[2017-05-13] MEDS: NACL 0.45% 1,000 ML IV SCH ×3 (05:21→22:31)
--- NOTE | 2017-05-13 05:40 | NUR ---
PT SLEEPING, MOANS TO TOUCH, BLOOD SUGAR CHECKED WITH 144 RESULT, NO DISTRESS NOTED, IVF INFUSING WELL, SIDE RAILS UP AND BED ALARM ON, RN IN THE ROOM FOR CLOSE MONITORING.
[2017-05-13 06:43] LABS: ANION GAP 8.5 (8-16); CALCIUM 8.1 mg/dL (8.5-10.1); CARBON DIOXIDE 29.8 mmol/L (21-32); CREATININE 0.5 mg/dL (0.6-1.3); POTASSIUM 4.3 mmol/L (3.5-5.1)
[2017-05-13 06:59] LABS: FREE T4 (FREE THYROXINE) 1.38 ng/dL (0.76-1.46); VALPROIC ACID 68 ug/ml (50-100)
[2017-05-13 07:05] LABS: THYROID STIMULATING HORMONE < 0.01 uIU/mL (0.34-3.74)
--- NOTE | 2017-05-13 07:05 | NUR ---
PT AWAKE, VERBALLY RESPONSIVE, NO SIGNS OF DISTRESS, REPORT GIVEN TO YURIY NUÑEZ FOR CONTINUITY OF CARE.
--- NOTE | 2017-05-13 07:06 | NUR ---
ASSUMED CONTINUITY OF CARE. NO SIGNS AND SYMPTOMS OF ACUTE DISTRESS NOTED. INITIAL ASSESSMENT DONE. CONFUSED AND TRIED TO GET OUT OF BED AT TIMES. KEEP SAFE AND FREE FROM FALL. FALL PRECAUTION APPLIED. CALL LIGHT WITHIN REACH.
--- NOTE | 2017-05-13 07:10 | NUR ---
Patient's Plan of Care was discussed and reviewed with CRYSTALLIZER OPERATOR: YURIY JORDAN
[2017-05-13] MEDS: BLOOD GLUCOSE MONITORING 1 DEV DEV FS SCH ×4 (07:20→21:01)
[2017-05-13 08:00] VITALS: BP 134/73
[2017-05-13] MEDS: metFORMIN 850 MG TAB PO SCH ×3 (08:51→16:43)
[2017-05-13] MEDS: FOLIC ACID 1 MG TAB PO SCH (08:51)
[2017-05-13] MEDS: DIVALPROEX 500 MG TABEC PO SCH ×2 (08:52→20:54)
[2017-05-13] MEDS: CYANOCOBALAMIN 1,000 MCG TAB PO SCH (08:52)
[2017-05-13] MEDS: VITAMIN D 400 IU TAB PO SCH ×2 (09:20→20:53)
--- NOTE | 2017-05-13 09:20 | NUR ---
EDGAR HEAD CAME AND REPORTED THAT PT. CONFUSED AND TRIED TO GET OUT OF BED SO MANY TIMES. EDGAR HEAD WAS TOLD NOT TO GIVE ATIVAN BUT TO INCREASE PT. MONITORING OR WILL TRY SOME MEDICINE TREATMENT. INFORMED CHARGE NURSE.
--- NOTE | 2017-05-13 09:30 | NUR ---
CLOSE MONITORED PT. 1:1 DUE TO PT. CONFUSION AND TRIED TO GET OUT OF BED MAY TIMES. KEEP FREE FROM INJURY.
[2017-05-13] MEDS: PROPRANOLOL 20 MG TAB PO SCH ×3 (10:46→16:44)
--- NOTE | 2017-05-13 11:30 | NUR ---
CONFUSED, STILL TRYING TO GET OUT OF BED. NO ACUTE DISTRESS NOTED. CONTINUE TO MONITOR 1:1. KEEP FREE FROM INJURY.
[2017-05-13] MEDS: INSULIN LISPRO SLIDING SCALE 100 UNITS/ML VIAL SUBQ PRN ×3 (11:55→21:00)
--- NOTE | 2017-05-13 12:40 | NUR ---
SLEEPING WELL. NO DISCOMFORT NOTED. CONTINUE TO MONITOR.
[2017-05-13] MEDS ORDERED: PROPRANOLOL 20 MG TAB PO SCH (13:00)
--- NOTE | 2017-05-13 13:50 | NUR ---
INFORMED DR. BOLES THAT 1300 DOSE OF INDERAL 10 MG WAS HELD BECAUSE PT. SLEEPING.
[2017-05-13 13:56] LABS: LITHIUM,SERUM 0.45 meq/L (0.50-1.00)
--- NOTE | 2017-05-13 15:37 | NUR ---
PT. SO CONFUSED, NON-COMPLIANT TO SAFETY. TRIED TO GET OUT OF BED. CLOSELY MONITORED 1:1.
[2017-05-13 16:00] VITALS: BP 117/78
[2017-05-13] MEDS: MONTELUKAST SODIUM 10 MG TAB PO SCH (16:54)
--- NOTE | 2017-05-13 19:04 | NUR ---
REPORT GIVEN TO JESSE BERNAL. IVF INFUSING WELL. IN STABLE CONDITION. CLOSELY MONITORED BY KERMIT GOYAL 1:1.
--- NOTE | 2017-05-13 19:05 | NUR ---
RECEIVED PT AWAKE, RESTLESS AND CONFUSED, VERBALLY RESPONSIVE BUT MAKES NO SENSE, IVF INFUSING WELL, SISTER AT BEDSIDE, SAFETY MEASURES IN PLACE WITH SIDE RAILS UP AND BED ALARM ON, ON 1:1 SITTER IN THE ROOM, CALL LIGHT WITHIN REACH.
--- NOTE | 2017-05-13 19:10 | NUR ---
RECEIVED PT AWAKE TALKING TO FAMILY MEMBERS AT BEDSIDE, 02/06 ABDOMINAL PAIN LEVEL AT THIS TIME, OFFERED PAIN PILL BUT SAID "IM HIRAM RIGHT NOW", INSTRUCTED TO CALL IF PAIN GOT WORST, VITAL SIGNS TAKEN, BP LOW BUT STABLE 90/54, DENIES CHEST PAIN, NO SOB NOTED, IVF INFUSING WELL, STILL NOT BM AT THIS TIME, WILL GIVE DUE STOOL SOFTENER TONIGHT, PLAN OF CARE DISCUSS, CALL LIGHT WITHIN REACH. Addendum: 05/13/17 at 9744 by Enrike Rojas RN CHARTED ON WRONG PT
[2017-05-13] MEDS: ARIPiprazole 10 MG TAB PO SCH (20:53)
[2017-05-13] MEDS: SIMVASTATIN 20 MG TAB PO SCH (20:53)
[2017-05-13] MEDS: ZOLPIDEM 5 MG TAB PO PRN (20:53)
[2017-05-13] MEDS: INSULIN DETEMIR 100 UNITS/ML 10 ML VIAL SUBQ SCH (21:01)
--- NOTE | 2017-05-13 21:05 | NUR ---
BLOOD SUGAR CHECKED WITH 248 RESULT, COVERAGE GIVEN, DUE MEDICATIONS ADMINISTERED, SANDWICH PROVIDED AND CONSUMED 80%, ALL NEEDS ATTENDED.
[2017-05-14] VITALS: BP 113/79
--- NOTE | 2017-05-14 | NUR ---
PT AWAKE, RESTLESS AND CONFUSED, VITAL SIGNS STABLE, DENIES ANY PAIN, INCONTINENT OF URINE, PERINEAL CARE DONE, IVF INFUSING WELL, SITTER IN THE ROOM, CONTINUE TO MONITOR CLOSELY.
--- NOTE | 2017-05-14 00:47 | NUR ---
PT VERY RESTLESS TRYING TO GET OOB TO GO TO BR, ASSISTED TO THE BR WITH 2 PERSON ASSIST, PT UNSTEADY, BM WITH LARGE SOFT BROWN STOOL, ASSISTED BACK TO BED, SIDE RAILS UP AND BED ALARM ON, MONITORED CLOSELY.
--- NOTE | 2017-05-14 05:40 | NUR ---
BLOOD SUGAR CHECKED WITH 67 RESULT, PT AWAKE, RESTLESS, VERBALLY RESPONSIVE BUT CONFUSED, ORANGE JUICE X2 WITH FOUR SUGAR PACKETS GIVEN, CONSUMED 100%, WILL RECHECK LATER.
--- NOTE | 2017-05-14 06:16 | NUR ---
INCONTINENT CARE DONE, BED LINEN CHANGED, BLOOD SUGAR RECHECKED WITH 93 RESULT, MONITORED CLOSELY.
[2017-05-14] MEDS: BLOOD GLUCOSE MONITORING 1 DEV DEV FS SCH ×4 (06:37→20:33)
--- NOTE | 2017-05-14 07:05 | NUR ---
PT AWAKE, NO SIGNS OF DISTRESS, REPORT GIVEN TO YURIY ARENAS FOR CONTINUITY OF CARE.
--- NOTE | 2017-05-14 07:10 | NUR ---
Patient's Plan of Care was discussed and reviewed with RETAIL SOLAR ADVISOR: YURIY RUSS.
[2017-05-14] MEDS: metFORMIN 850 MG TAB PO SCH ×3 (07:51→17:23)
[2017-05-14 08:00] VITALS: BP 134/84
[2017-05-14] MEDS: NACL 0.45% 1,000 ML IV SCH (08:01)
[2017-05-14 08:08] LABS: T4 (THYROXINE) 6.3 ug/dL (4.5-12.0)
[2017-05-14] MEDS: DIVALPROEX 500 MG TABEC PO SCH ×2 (08:43→20:22)
[2017-05-14] MEDS: FOLIC ACID 1 MG TAB PO SCH (08:43)
[2017-05-14] MEDS: PROPRANOLOL 20 MG TAB PO SCH ×3 (08:44→17:23)
[2017-05-14] MEDS: CYANOCOBALAMIN 1,000 MCG TAB PO SCH (08:44)
[2017-05-14] MEDS: VITAMIN D 400 IU TAB PO SCH ×2 (08:44→20:22)
--- NOTE | 2017-05-14 09:15 | NUR ---
AMBULATES ON HALLWAY WITH STEADY GAIT AND BALANCE, FOLLOWED BY A SITTER OBED GUTIERREZ. TOLERATED WELL. PT. MADE 2 ROUNDS OF AMBULATION AROUND [facility] STATION. EDGAR HEAD AND CHARGE NURSE ISRRAEL BERNAL MADE AWARE OF PT. AMBULATION.
[2017-05-14 09:25] LABS: ANION GAP 9.3 (8-16); CALCIUM 7.9 mg/dL (8.5-10.1); CARBON DIOXIDE 29.5 mmol/L (21-32); CREATININE 0.5 mg/dL (0.6-1.3); POTASSIUM 3.8 mmol/L (3.5-5.1)
--- NOTE | 2017-05-14 11:24 | NUR ---
Social Service Note: Per Beto from [facility] / , no beds available at this time.
[2017-05-14] MEDS: INSULIN LISPRO SLIDING SCALE 100 UNITS/ML VIAL SUBQ PRN ×3 (11:50→20:33)
[2017-05-14 12:00] VITALS: BP 118/52
--- NOTE | 2017-05-14 12:00 | NUR ---
VITALS SIGN STABLE. NO C/O PAIN. WILL MONITOR.
[2017-05-14] MEDS: NICOTINE TRANSD SYS 21 MG/24 HR PATCH TD SCH (16:19)
[2017-05-14] MEDS: MONTELUKAST SODIUM 10 MG TAB PO SCH (17:23)
--- NOTE | 2017-05-14 19:17 | NUR ---
REPORT GIVEN TO JESSE BERNAL. IN STABLE CONDITION.
--- NOTE | 2017-05-14 19:20 | NUR ---
RECEIVED PT SITTING ON BED, ALERT BUT RESTLESS, UNABLE TO STAY STILL, TALKS A LOT ON MULTIPLE TOPICS THAT DOESN'T MAKE SENSE, DENIES ANY PAIN, SLIGHTLY UNSTEADY WHEN AMBULATING, ON FALL RISK, SITTER WITH PT AT ALL TIMES.
[2017-05-14] MEDS: ARIPiprazole 10 MG TAB PO SCH (20:22)
[2017-05-14] MEDS: SIMVASTATIN 20 MG TAB PO SCH (20:22)
[2017-05-14] MEDS: INSULIN DETEMIR 100 UNITS/ML 10 ML VIAL SUBQ SCH (20:33)
--- NOTE | 2017-05-14 22:44 | NUR ---
PT WOKE UP, AMBULATED INSIDE THE ROOM, REQUESTING SOMETHING TO EAT, SANDWICH AND DIET COLA PROVIDED, CONSUMED 25%, MONITORED CLOSELY.
[2017-05-15] VITALS: BP 110/56
--- NOTE | 2017-05-15 00:10 | NUR ---
PT STILL AWAKE, RESTLESS, TALKING TO SELF AND SOMETIMES HEARING VOICES, REORIENTED TO TIME AND PLACE, ENCOURAGE TO GO TO SLEEP, VITAL SIGNS STABLE, CONTINUE TO MONITOR CLOSELY.
--- NOTE | 2017-05-15 02:00 | NUR ---
PT STILL AWAKE, CALMER, STAYS IN BED TALKING TO SELF, SITTER AT BEDSIDE, MONITORED CLOSELY.
--- NOTE | 2017-05-15 04:10 | NUR ---
PT SLEEPING ON AND OFF, SIDE RAILS UP AND BED ALARM ON, MONITORED CLOSELY.
--- NOTE | 2017-05-15 05:30 | NUR ---
AM LABS DRAWN, BLOOD SUGAR CHECKED WITH 65 RESULT, PT AWAKE, ASYMPTOMATIC, APPLE JUICE X2 AND PUDDING X2 GIVEN, CONSUMED 100%, WILL RECHECKED SUGAR LATER.
--- NOTE | 2017-05-15 06:00 | NUR ---
BLOOD SUGAR RECHECKED WITH 85 RESULT, NO DISTRESS NOTED, MONITORED CLOSELY.
[2017-05-15 06:08] LABS: ANION GAP 11.6 (8-16); CALCIUM 7.7 mg/dL (8.5-10.1); CARBON DIOXIDE 27.1 mmol/L (21-32); CREATININE 0.5 mg/dL (0.6-1.3); POTASSIUM 3.7 mmol/L (3.5-5.1)
[2017-05-15] MEDS: BLOOD GLUCOSE MONITORING 1 DEV DEV FS SCH ×4 (06:43→21:05)
--- NOTE | 2017-05-15 07:25 | NUR ---
PT AWAKE, NO DISTRESS NOTED, SITTER IN THE ROOM, REPORT GIVEN TO DAGOBERTO OBRIEN FOR CONTINUITY OF CARE.
--- NOTE | 2017-05-15 07:27 | NUR ---
RECEIVED REPORT FROM NIGHT RN. PT RESTING IN BED. AAOX1. NO S/S OF ACUTE DISTRESS. PT DENIES PAIN. FLACC-0. IV SITE PATENT AND INTACT. CALL LIGHT WITHIN REACH. SAFETY MEASURES ENSURED. WILL CONTINUE TO MONITOR.
[2017-05-15] MEDS: metFORMIN 850 MG TAB PO SCH ×3 (08:00→16:51)
[2017-05-15 08:12] VITALS: BP 122/73
[2017-05-15] MEDS: PROPRANOLOL 20 MG TAB PO SCH ×3 (09:05→17:22)
[2017-05-15] MEDS: CYANOCOBALAMIN 1,000 MCG TAB PO SCH (09:05)
[2017-05-15] MEDS: FOLIC ACID 1 MG TAB PO SCH (09:05)
[2017-05-15] MEDS: DIVALPROEX 500 MG TABEC PO SCH ×2 (09:05→21:04)
[2017-05-15] MEDS: VITAMIN D 400 IU TAB PO SCH ×2 (09:05→21:03)
[2017-05-15] MEDS: NICOTINE TRANSD SYS 21 MG/24 HR PATCH TD SCH (09:05)
--- NOTE | 2017-05-15 09:05 | NUR ---
AM MEDICATIONS GIVEN WITH EDUCATION. PT UNABLE TO VERBALIZE UNDERSTANDING. NICOTINE PATCH PLACED ON LEFT UPPER ARM. NO S/S OF ACUTE DISTRESS. WILL CONTINUE TO MONITOR.
--- NOTE | 2017-05-15 10:48 | NUR ---
SS NOTE: PER LINDSEY FROM [facility] ([phone]), THEY ARE PENDING DISCHARGES AND MAY HAVE A BED AVAILABLE FOR PT TODAY.
--- NOTE | 2017-05-15 12:18 | NUR ---
PT SITTING IN CHAIR AT BEDSIDE. NO S/S OF ACUTE DISTRESS. PT DENIES PAIN. CALL LIGHT WITHIN REACH. SAFETY MEASURES ENSURED. WILL CONTINUE TO MONITOR.
[2017-05-15] MEDS: INSULIN LISPRO SLIDING SCALE 100 UNITS/ML VIAL SUBQ PRN ×2 (12:25→21:01)
--- NOTE | 2017-05-15 14:15 | NUR ---
PHYSICAL THERAPY CO-SIGN The Physical Therapy Progress Notes documented by Shipping Supervisor have been reviewed. Reviewed/Co-Signed by: Philip Torres PT Documentation Done by: RADHA MAYO PTA PT HAS MADE GOOD SIGNIFICANT FUNCTIONAL GAIT DISTANCE TODAY. Addendum: 05/15/17 at 1416 by Philip Torres PT Amended: Links added.
--- NOTE | 2017-05-15 14:35 | NUR ---
SS NOTE: PER LINDSEY AT [facility], THEY ARE UNABLE TO ACCEPT PT BECAUSE SHE WILL BE A PLACEMENT ISSUE FOR THEM. I SPOKE WITH PT'S MOM, MATTHEW. SHE STATED THAT SHE RECENTLY SPOKE WITH [facility] AND THEY WILL NOT TAKE PT BACK BECAUSE THEY FOUND DRUGS IN HER BELONGINGS AT THE FACILITY. SHE ALSO STATED THAT SHE IS IN AGREEMENT WITH PT GOING [facility].
--- NOTE | 2017-05-15 15:44 | NUR ---
CLINICAL REVIEW DONE.
--- NOTE | 2017-05-15 15:50 | NUR ---
GERTRUDE NOTE: SENT PSYCH PLACEMENT INQUIRIES TO: - [facility] - [facility] - [facility] - [facility] Addendum: 05/15/17 at 1555 by Amira Jones SS PER VIJAYA FROM [facility], NO FEMALE BEDS AVAILABLE
--- NOTE | 2017-05-15 15:56 | NUR ---
PT SITTING AT BEDSIDE. NO S/S OF ACUTE DISTRESS. PT DENIES PAIN. WILL CONTINUE TO MONITOR.
[2017-05-15 16:00] VITALS: BP 136/75
[2017-05-15] MEDS: MONTELUKAST SODIUM 10 MG TAB PO SCH (17:21)
--- NOTE | 2017-05-15 19:05 | NUR ---
ENDORSED PLAN OF CARE TO NIGHT RN. PT REMAINS STABLE.
--- NOTE | 2017-05-15 19:06 | NUR ---
RECD. AMBULATING INSIDE ROOM, AWAKE, A/OX1, CONFUSED. RESPIRATION EVEN AND UNLABORED. IV SALINE LOCK AT THE RIGHT FOREARM G 22, PATENT. KEEP ON GETTING IN AND OUT OF BED. REORIENTED TO HOSPITAL SETTING. WITH 1:1 SITTER MONITORING PATIENT BEHAVIOR AND SAFETY. NO APPEARANCE OF PAIN NOTED 0/10.
--- NOTE | 2017-05-15 20:00 | NUR ---
Patient's Plan of Care was discussed and reviewed with SAWYER CORK SLABS: TANNER Lazaro
[2017-05-15] MEDS: INSULIN DETEMIR 100 UNITS/ML 10 ML VIAL SUBQ SCH (20:59)
[2017-05-15] MEDS: SIMVASTATIN 20 MG TAB PO SCH (21:03)
--- NOTE | 2017-05-15 21:03 | NUR ---
DUE PO MEDICATIONS GIVEN, TOLERATED WELL. COOPERATIVE.
[2017-05-15] MEDS: LORazepam 1 MG TAB PO PRN (21:04)
[2017-05-15] MEDS: ARIPiprazole 10 MG TAB PO SCH (21:04)
[2017-05-15] MEDS: ZOLPIDEM 5 MG TAB PO PRN (21:05)
--- NOTE | 2017-05-15 21:05 | NUR ---
TRYING TO GET OUT OF THE ROOM, AGITATED. MEDICATED WITH ATIVAN 1 MG. PO.
--- NOTE | 2017-05-15 22:05 | NUR ---
SLEEPING COMFORTABLY IN BED.
[2017-05-16] VITALS: BP 126/72
[2017-05-16] MEDS: BLOOD GLUCOSE MONITORING 1 DEV DEV FS SCH ×3 (06:26→16:30)
--- NOTE | 2017-05-16 06:30 | NUR ---
ABLE TO SLEPT WELL. SAFETY MAINTAINED DURING SHIFT. 1:1 SITTER NEAR BEDSIDE, MONITORING PATIENT. CONDITION REMAIN STABLE. WILL ENDORSE TO AM NURSE FOR CONTINUITY OF CARE.
[2017-05-16 07:01] LABS: ANION GAP 8.7 (8-16); CALCIUM 7.4 mg/dL (8.5-10.1); CARBON DIOXIDE 28.2 mmol/L (21-32); CREATININE 0.5 mg/dL (0.6-1.3); POTASSIUM 3.9 mmol/L (3.5-5.1)
--- NOTE | 2017-05-16 07:20 | NUR ---
RECEIVED PATIENT REPORT AT BEDSIDE FROM NIGHT NURSE. PT IS KRYSTYNA AND STATES "SHE IS AND WANTS TO TALK TO HER BOYFRIEND." PATIENT TEST IS NEGATIVE. PATIENT HAS A NOTED IV SL ON THE R FA THAT IS REDDENED, PINK, AND PUFFY WILL DISCONTINUE. PATIENT SKIN IS INTACT. PATIENT WAS HELPED TO THE RESTROOM TO VOID URINE. PT AMB WITH ASSISTANCE FROM SITTER. PATIENT IS NOW IN BED AND SHOWS NO S/S OF DISTRESS ON ROOM AIR. THE BED IS LOWERED WITH CALL LIGHT WITHIN REACH. PATIENT VERBALIZES UNDERSTANDING OF POC HOWEVER NEEDS CONSTANT REINFORCEMENT. WILL CONTINUE TO MONITOR.
[2017-05-16 08:00] VITALS: BP 100/64
[2017-05-16] MEDS: metFORMIN 850 MG TAB PO SCH ×3 (08:24→17:10)
[2017-05-16] MEDS: NICOTINE TRANSD SYS 21 MG/24 HR PATCH TD SCH (08:24)
[2017-05-16] MEDS: CYANOCOBALAMIN 1,000 MCG TAB PO SCH (08:25)
[2017-05-16] MEDS: DIVALPROEX 500 MG TABEC PO SCH (08:25)
[2017-05-16] MEDS: FOLIC ACID 1 MG TAB PO SCH (08:25)
[2017-05-16] MEDS: PROPRANOLOL 20 MG TAB PO SCH ×3 (08:25→17:11)
[2017-05-16] MEDS: VITAMIN D 400 IU TAB PO SCH (08:25)
--- NOTE | 2017-05-16 08:26 | NUR ---
ADMINISTERED SCHEDULED MEDICATIONS. IV WAS DISCONTINUED ON THE L FA WILL ADMINISTER A NEW ONE. PATIENT TOLERATED ACTIVITY WELL. PATIENT SHOWS NO S/S OF DISTRESS ON ROOM AIR.
[2017-05-16] MEDS: ACETAMINOPHEN 325 MG TAB PO PRN (09:23)
--- NOTE | 2017-05-16 09:23 | NUR ---
PATIENT STATED HER LEGS ACHE AND FEEL STIFF. PATIENT REQUESTED TO HAVE TYLENOL. ADMINISTERED TYLENOL 650 MG PO FOR MILD PAIN.
--- NOTE | 2017-05-16 10:40 | NUR ---
PATIENT IN BED AND SHOWS NO S/S OF DISTRESS ON ROOM AIR. PATIENT HAS SITTER AT BEDSIDE.
--- NOTE | 2017-05-16 10:40 | NUR ---
SS NOTE: PER HALIE FROM [facility] (CONNECTION WITH [facility]), NO BEDS AVAILABLE
[2017-05-16] MEDS: INSULIN LISPRO SLIDING SCALE 100 UNITS/ML VIAL SUBQ PRN (11:13)
--- NOTE | 2017-05-16 11:47 | NUR ---
SS NOTE: PER VINNY FROM [facility] ([phone]), THEY ARE ABLE TO TAKE PT ONCE THEY RECEIVE PT'S 51/50 HOLD AND THE ACCEPTING PHYSICIAN IS DR. CAMPOS. Addendum: 05/16/17 at 1316 by Amira Jones SS I SPOKE WITH PT'S MOTHER, MATTHEW TO PROVIDE HER WITH AN UPDATE AND SHE IS IN AGREEMENT WITH PT GOING TO [facility].
--- NOTE | 2017-05-16 13:40 | NUR ---
ADMINISTERED SCHEDULED MEDICATIONS. PATIENT SHOWS NO S/S OF DISTRESS ON ROOM AIR. PATIENT DENIES PAIN.
--- NOTE | 2017-05-16 13:45 | NUR ---
05/16/17 RD FOLLOW-UP ASSESSMENT COMPLETED PLEASE REFER TO NUTRITION ASSESSMENT UNDER CARE ACTIVITY FOR ESTIMATED NUTRITIONAL NEEDS. 1. RECOMMEND CARDIAC, 75GM CONSISTENT CARBOHYDRATE DIET 2. D/C DIET HEALTH ERIKA TREJO 3. RD TO FOLLOW-UP 2-3 DAYS; HIGH RISK PRIYA LEIGH RD Addendum: 05/16/17 at [address] 05/16/17 RD FOLLOW-UP ASSESSMENT COMPLETED PLEASE REFER TO NUTRITION ASSESSMENT UNDER CARE ACTIVITY FOR ESTIMATED NUTRITIONAL NEEDS. 1. RECOMMEND CARDIAC, 75GM CONSISTENT CARBOHYDRATE DIET 2. D/C DIET HEALTH ERIKA TREJO 3. RD TO FOLLOW-UP 3-5 DAYS, MODERATE RISK PRIYA LEIGH RD
--- NOTE | 2017-05-16 15:45 | NUR ---
PATIENT IS IN BED AND SHOWS NO S/S OF DISTRESS ON ROOM AIR. WILL CONTINUE TO MONITOR.
[2017-05-16 16:00] VITALS: BP 106/69
[2017-05-16] MEDS ORDERED: LEVEMIR SUBQ (16:23)
[2017-05-16] MEDS ORDERED: METF850T PO (16:23)
[2017-05-16] MEDS ORDERED: DIVA250E1 PO (16:23)
[2017-05-16] MEDS ORDERED: ARIP10TA28 PO (16:23)
[2017-05-16] MEDS ORDERED: [UNRECOGNIZED DRUG - CODE] TD (16:23)
[2017-05-16] MEDS ORDERED: MONT10TA35 PO (16:29)
[2017-05-16] MEDS: MONTELUKAST SODIUM 10 MG TAB PO SCH (17:10)
--- NOTE | 2017-05-16 17:48 | NUR ---
SPOKE WITH VINNY FROM [facility] AND STATES SHE ALREADY RECEIVED REPORT FOR PATIENT. VINNY STATED ATTENDING DR WAS CHANGED TO DR. ARREDONDO. [facility]ORT ARRIVED ONTO UNIT. PT HAS BEEN DISCHARGED DISCHARGE INSTRUCTIONS WERE GIVEN AND ALL PAPERWORK SIGNED. ALL QUESTIONS ANSWERED. ALL BELONGINGS IN PATIENT POSSESSION. NO IV ACCESS TO BE DISCONTINUED. WRISTBANDS REMOVED. [facility] ASSISTED PATIENT ONTO [facility]. PATIENT LEFT UNIT IN STABLE CONDITION. PATIENT'S MOTHER MATTHEW FERNANDEZ SR. WAS NOTIFIED.
== END 2017-05-16 17:48 | DRG 91 ==
LOC: MED 12:23 → MTU 19:38
PROVIDERS: ADMIT Family Medicine; ATTEND Family Medicine
DX: G92 Toxic encephalopathy (principal); N17.0 Acute kidney failure with tubular necrosis; I50.43 Acute on chronic combined systolic (congestive) and diastolic (congestive) heart failure; E43 Unspecified severe protein-calorie malnutrition; E87.1 Hypo-osmolality and hyponatremia; E87.0 Hyperosmolality and hypernatremia; N25.1 Nephrogenic diabetes insipidus; E11.65 Type 2 diabetes mellitus with hyperglycemia; E78.5 Hyperlipidemia, unspecified; E05.90 Thyrotoxicosis, unspecified without thyrotoxic crisis or storm; D53.9 Nutritional anemia, unspecified; D72.829 Elevated white blood cell count, unspecified; F15.129 Other stimulant abuse with intoxication, unspecified; F25.0 Schizoaffective disorder, bipolar type; E11.22 Type 2 diabetes mellitus with diabetic chronic kidney disease; N18.9 Chronic kidney disease, unspecified; E83.51 Hypocalcemia; E87.6 Hypokalemia; E87.8 Other disorders of electrolyte and fluid balance, not elsewhere classified; G25.71 Drug induced akathisia; F15.120 Other stimulant abuse with intoxication, uncomplicated; T43.595A Adverse effect of other antipsychotics and neuroleptics, initial encounter; E86.0 Dehydration; F17.200 Nicotine dependence, unspecified, uncomplicated; Z71.6 Tobacco abuse counseling; Y92.89 Other specified places as the place of occurrence of the external cause; Z72.89 Other problems related to lifestyle; Z59.0 Homelessness; Z56.0 Unemployment, unspecified; Z68.24 Body mass index [BMI] 24.0-24.9, adult
CPT/HCPCS: 36415; 36600; 70450; 71010; 76536; 80048; 80053; 80178; 80305; 81001; 81025; 82140; 82150; 82550; 82607; 82746; 82803; 82948; 83036; 83605; 83615; 83690; 83735; 83880; 83930; 83935; 84100; 84436; 84439; 84443; 84479; 84484; 85025; 85610; 85730; 87081; 87086; 93005; 93925; 93970; 96360; 96361; 97110; 97116; 97140; 97530; 99285; C1758; G0480; G0482; J0696; J1815; J1940; J2060; J3420; J7030; J7060; Q0092